=== PATIENT | female | born 1995 | race Caucasian/White ===

== ENCOUNTER 2020-01-05 17:47 | Emergency (ER) | payer OTHER, SELFPAY ==
[2020-01-05 17:55] VITALS: BP 147/81; PULSE 108; RESP 16; TEMP 37.6; O2SAT 100
--- NOTE | 2020-01-05 18:23 | ED.NAVMDI ---
HPI - Nausea/Vomiting/Diarrhea General Chief complaint: Nausea/Vomiting/Diarrhea Stated complaint: n/v 22 weeks preg Time Seen by Provider: 01/05/20 18:20 Source: patient and RN notes reviewed Mode of arrival: ambulatory Limitations: no limitations History of Present Illness HPI Narrative: A 24 y/o female, who is 22 week gravid, presents to the ED with N/V for the past day. She reports that she has been having associated sweats, a subjective fever, and a PEGUERO. She states that eating or drinking aggravates her symptoms. She denies any diarrhea, chills, dysuria, hematuria, urinary frequency, cough, body aches, ABD pain, vaginal discharge, or vaginal bleeding. MD elicited complaint: nausea and vomiting Onset (ago): day(s) (1) Associated nausea: Yes Associated abdominal pain: No Exacerbating factors: eating (and drinking) Associated symptoms: diaphoresis, fever/chills (subjective fever) and headaches Related Data Home Medications Medication Instructions Recorded Confirmed Complete 1 tablet PO DAILY 10/08/19 11/17/19 venlafaxine 150 mg PO DAILY 10/08/19 11/17/19 lamotrigine [Lamictal] 100 mg PO DAILY 01/05/20 Allergies Allergy/AdvReac Type Severity Reaction Status Date / Time No Known Allergies Allergy Unknown Verified 01/05/20 18:05 Review of Systems Review of Systems: All systems reviewed & are unremarkable except as noted in HPI and below Constitutional: Constitutional: Denies body ache(s), Denies chills, Reports fever(s) (subjective) and Reports other (sweats) Respiratory: Respiratory: Denies cough Gastrointestinal: Gastrointestinal: Denies abdominal pain, Denies diarrhea, Reports nausea and Reports vomiting Genitourinary: Genitourinary: Denies abnormal vaginal bleeding, Denies hematuria, Denies nocturia, Denies dysuria and Denies vaginal discharge Neurologic: Reports headache(s) PMFSH Past Medical History Medical History (Updated 01/05/20 @ 20:55 by Aidee Mitchell MD) Anxiety Depression Hx of bipolar disorder Urinary tract infection Surgical History Surgical History No significant past surgical history Family History Family History Grandparent Diabetes mellitus Hypertension Carcinoma of colon Social History Social History Smoking packs per day: 1 Smoking cigarettes per day: 20.0 Years smoked: 4 Smoking pack-years: 4.00 Smoking status: Current every day smoker Tobacco type: cigarettes Alcohol intake: former Substance use: never Substance use type: does not use Gender identity (if verbalized by the patient): Female Spiritual care concerns: No Agree to blood products: Yes Exam Const: General: cooperative, no acute distress and alert Nutritional Appearance: well nourished Orientation/consciousness: patient oriented x3 Limitations: no limitations HENMT: Mouth: Yes lip normal and Yes moist mucous membranes Resp: Effort & Inspection: normal respiratory effort Auscultation: clear to auscultation bilaterally Cardio: Rate: regular rate Rhythm: regular rhythm GI: Inspection: other (uterus gravid constant with dates) GI Palp: Yes Soft to palpation and No Tenderness to palpation present (GI) Auscultation: normal bowel sounds Skin: General skin exam: normal color Neuro: General: patient oriented x3 Cognition (Neuro): normal cognition Speech: normal speech Extrem: General: normal to inspection, full ROM and no clubbing, cyanosis or edema Psych: Mental Status: mental status grossly normal Affect: normal affect Attitude: cooperative Course Course Emergency Course: Patient feeling better after Reglan and IV fluids. Patient has mild pyuria without any findings to suggest UTI at this time. Urine culture is pending. Advised patient to follow-up results of urine culture with [employer]. Patient tolerating clear liquids in
[2020-01-05 18:47] LABS: Basophils Absolute Auto 0.1 K/mm3 (0.0-0.1); Basophils Percent Auto 0.5 % (0.2-1.2); Eosinophils Percent Auto 0.3 % (0-4.4); Hematocrit 39.7 % (37.0-47.0); Hemoglobin 13.4 g/dL (12.0-15.0); Immature Granulocyte Absolute 0.07 K/mm3 (0.00-0.031); Immature Granulocyte Percent A 0.5 % (0-0.5); Lymphocytes Absolute Auto 1.88 K/mm3 (0.9-3.2); Lymphocytes Percent Auto 13.4 % (18.3-44.2); Mean Corpuscular HGB Conc 33.8 g/dl (32-36); Mean Corpuscular Hemoglobin 31.7 pg (26-34); Mean Corpuscular Volume 93.9 fl (80-100); Monocytes Percent Auto 7.1 % (2.6-8.5); Neutrophils Percent Auto 78.2 % (45.5-73.1); Platelet Count Result 322 k/mm3 (150-375); Red Blood Count 4.23 M/mm3 (4.2-5.4); Red Cell Distribution Width 11.9 % (11.5-14.5)
[2020-01-05 18:53] VITALS: BP 130/81; BP 133/84; BP 138/81; PULSE 84; PULSE 93; PULSE 98
[2020-01-05 19:03] LABS: Alanine Aminotransferase 31 U/L (4-35); Albumin Level 4.6 g/dL (3.5-5.1); Alkaline Phosphatase 87 U/L (38-126); Aspartate Amino Transferase 30 U/L (14-36); Bilirubin,Total 0.3 mg/dL (0.2-1.3); Blood Urea Nitrogen 9 mg/dL (7-17); Calcium 9.7 mg/dL (8.4-10.2); Carbon Dioxide 20 mmol/L (22-30); Chloride 106 mmol/L (98-107); Estimated CRCL calculation 186 ml/min; Estimated Glomerular Filt Rate > 60; Glucose 86 mg/dL (65-105); Lipase 22 U/L (23-300); Potassium 3.6 mmol/L (3.4-5.0); Sodium 137 mmol/L (137-145)
[2020-01-05] MEDS: METOCLOPRAMIDE HCL INJ 10 MG/2 ML VIAL IV PUSH (19:24)
[2020-01-05] MEDS: LACTATED RINGERS 1,000 ML 999 ML IV CONT (19:24)
[2020-01-05 20:40] LABS: Add Urine Microscopic? YES; Appearance Urine Cloudy (Clear); Bacteria Urine 2+ /hpf; Bilirubin Urine Negative (Negative); Color Urine Yellow (Yellow); Glucose Urine UA Negative (Negative); Ketones Urine 2+ mg/dL (Negative); Leukocyte Esterase Ur 2+ LEU/UL (Negative); Mucus Urine Few /lpf; Nitrate Urine Negative (Negative); Protein Urine 1+ mg/dL (Negative); Specific Grav Ur 1.026 (1.001-1.035); Squamous Epithelial Cell Urine Many /hpf (Few); Urobilinogen Urine Negative mg/dL (<2.0)
[2020-01-05 20:42] LABS: Blood Urine Negative (Negative)
[2020-01-05 21:30] VITALS: BP 142/74; PULSE 80; RESP 16; O2SAT 98
== END 2020-01-05 21:31 | disposition home or self-care (01) ==
PROVIDERS: Emergency Provider Emergency Medicine; PCP Family Medicine
DX: O21.9 Vomiting of pregnancy, unspecified (principal); O99.282 Endocrine, nutritional and metabolic diseases complicating pregnancy, second trimester; E86.0 Dehydration; O99.342 Other mental disorders complicating pregnancy, second trimester; F41.9 Anxiety disorder, unspecified; F31.9 Bipolar disorder, unspecified; O99.332 Smoking (tobacco) complicating pregnancy, second trimester; F17.210 Nicotine dependence, cigarettes, uncomplicated; Z3A.22 22 weeks gestation of pregnancy
CPT/HCPCS: 36415; 80053; 81001; 83690; 85025; 87086; 87088; 87804; 96374; 99284; J2765; J7120

== ENCOUNTER 2020-04-22 17:05 | Outpatient (CLI) | payer OTHER, SELFPAY ==
[2020-04-22] VITALS (7 sets, daily range): BP systolic 143–148; BP diastolic 82–101; PULSE 87–106; TEMP 36.6; BMI 29.8
[2020-04-22 18:12] LABS: Basophils Absolute Auto 0.1 K/mm3 (0.0-0.1); Basophils Percent Auto 0.5 % (0.2-1.2); Eosinophils Absolute Auto 0.1 K/mm3 (0-0.3); Hematocrit 38.4 % (37.0-47.0); Immature Granulocyte Absolute 0.13 K/mm3 (0.00-0.031); Immature Granulocyte Percent A 0.9 % (0-0.5); Lymphocytes Absolute Auto 2.76 K/mm3 (0.9-3.2); Lymphocytes Percent Auto 19.2 % (18.3-44.2); Mean Corpuscular HGB Conc 33.9 g/dl (32-36); Mean Corpuscular Hemoglobin 31.3 pg (26-34); Mean Corpuscular Volume 92.5 fl (80-100); Mean Platelet Volume 10.5 fl (7.4-10.4); Monocytes Absolute Auto 1.4 K/mm3 (0.1-0.6); Monocytes Percent Auto 9.9 % (2.6-8.5); Neutrophils Absolute Auto 9.8 K/mm3 (1.3-6.7); Neutrophils Percent Auto 68.5 % (45.5-73.1); Platelet Count Result 283 k/mm3 (150-375); Red Blood Count 4.15 M/mm3 (4.2-5.4); Red Cell Distribution Width 12.9 % (11.5-14.5); White Blood Count 14.3 K/mm3 (4.5-10.0)
[2020-04-22 18:17] LABS: Add Urine Microscopic? YES; Amorphous Sediment Urine Few; Appearance Urine Cloudy (Clear); Bacteria Urine 4+ /hpf; Bilirubin Urine Negative (Negative); Color Urine Yellow (Yellow); Glucose Urine UA Negative (Negative); Ketones Urine Negative (Negative); Leukocyte Esterase Ur 1+ LEU/UL (Negative); Mucus Urine Heavy /lpf; Nitrate Urine Negative (Negative); Protein Urine 2+ mg/dL (Negative); Specific Grav Ur 1.029 (1.001-1.035); Squamous Epithelial Cell Urine Many /hpf (Few); Urobilinogen Urine Negative mg/dL (<2.0); WBC Urine 16-20 /hpf
[2020-04-22 18:21] LABS: Blood Urine Negative (Negative)
[2020-04-22 18:23] LABS: Alanine Aminotransferase 14 U/L (4-35); Albumin Level 3.6 g/dL (3.5-5.1); Alkaline Phosphatase 171 U/L (38-126); Aspartate Amino Transferase 20 U/L (14-36); Bilirubin,Total 0.2 mg/dL (0.2-1.3); Blood Urea Nitrogen 10 mg/dL (7-17); Carbon Dioxide 22 mmol/L (22-30); Chloride 106 mmol/L (98-107); Estimated Glomerular Filt Rate > 60; Glucose 82 mg/dL (65-105); Potassium 4.1 mmol/L (3.4-5.0); Sodium 134 mmol/L (137-145); Uric Acid 5.8 mg/dL (2.5-7.5)
[2020-04-22 19:04] LABS: Creatinine Urine 241.3 mg/dL; Total Protein Urine Random 14 mg/dL
--- NOTE | 2020-04-22 20:16 | PC.NURSE ---
Discussed with pt to return to OB 04/23 at 0530 for . Instructed nothing to eat or drink after midnight. Estelle Montero CNM instructed pt we will give her meds after the as she does not normally take them until closer to noon. Discussed labs and will repeat labs in the morning and instructed to return to the hospital sooner if she begins having symptoms of HIP which were explained and discussed or labor/SROM. Verbalized understanding.
== END 2020-04-22 19:30 | disposition home or self-care (01) ==
LOC: ANHOBOP 17:43 → ANHOBPP 17:46
PROVIDERS: Advanced Practice Midwife; Family Provider Obstetrics & Gynecology; PCP Family Medicine; Visit Provider Obstetrics & Gynecology
DX: O13.9 Gestational [pregnancy-induced] hypertension without significant proteinuria, unspecified trimester (principal); Z3A.00 Weeks of gestation of pregnancy not specified
CPT/HCPCS: 36415; 59025; 80053; 81001; 82570; 84156; 84550; 85025; 87086; 87088; 99199

== ENCOUNTER 2020-04-23 05:41 | Inpatient (IN) | payer OTHER, SELFPAY ==
[2020-04-23] VITALS (65 sets, daily range): BP systolic 104–163; BP diastolic 82–127; PULSE 25–110; RESP 14–20; TEMP 36–37.5; O2SAT 81–100; BMI 29.8
--- NOTE | 2020-04-23 06:26 | WPDANESEPP ---
Anes - Eval Pre Procedure Procedure: Operation Date: 04/23/20 07:30 Proposed Procedures p Section - Solomon Mcdowell MD Date/Time: 04/23/20 06:26 Surgeon: July Preop Diagnosis: Breech Presentation Pre Op Diagnosis: section Patient Data Age: 24 Gender: F Height: Weight: Allergies Allergy/AdvReac Type Severity Reaction Status Date / Time No Known Allergies Allergy Unknown Verified 04/13/20 12:47 Home Medications Medication Instructions Recorded Confirmed Type Complete 1 tablet PO DAILY 10/08/19 04/22/20 History venlafaxine 150 mg PO DAILY 10/08/19 04/22/20 History lamotrigine [Lamictal] 200 mg PO DAILY 01/05/20 04/22/20 History hydroxyzine HCl 50 mg PO HS 04/22/20 04/22/20 History Patient hx anesthesia problems: none Family hx anesthesia problems: none PMFSH Past Medical History Medical History Anxiety Depression Hx of bipolar disorder Urinary tract infection Surgical History Surgical History No significant past surgical history Family History Family History Grandparent Diabetes mellitus Carcinoma of colon Hypertension Heart disease Social History Social History Smoking packs per day: 1 Smoking cigarettes per day: 20.0 Years smoked: 4 Smoking pack-years: 4.00 Smoking status: Current every day smoker Tobacco type: cigarettes Alcohol intake: former Substance use: never Substance use type: does not use Gender identity (if verbalized by the patient): Female Spiritual care concerns: No Agree to blood products: Yes Exam Day of Procedure 04/23/20 06:26 Patient weight: overweight Heart: regular rate and rhythm Lungs: clear to auscultation and normal air movement Airway: Mallampati scale class II Neurological: alert and oriented
[2020-04-23 06:38] LABS: Basophils Absolute Auto 0.1 K/mm3 (0.0-0.1); Basophils Percent Auto 0.4 % (0.2-1.2); Eosinophils Absolute Auto 0.1 K/mm3 (0-0.3); Hematocrit 36.9 % (37.0-47.0); Hemoglobin 12.5 g/dL (12.0-15.0); Immature Granulocyte Absolute 0.09 K/mm3 (0.00-0.031); Immature Granulocyte Percent A 0.6 % (0-0.5); Lymphocytes Percent Auto 20.9 % (18.3-44.2); Mean Corpuscular HGB Conc 33.9 g/dl (32-36); Mean Corpuscular Hemoglobin 30.9 pg (26-34); Mean Corpuscular Volume 91.3 fl (80-100); Monocytes Absolute Auto 1.3 K/mm3 (0.1-0.6); Monocytes Percent Auto 8.9 % (2.6-8.5); Neutrophils Absolute Auto 9.8 K/mm3 (1.3-6.7); Neutrophils Percent Auto 68.2 % (45.5-73.1); Platelet Count Result 279 k/mm3 (150-375); Red Blood Count 4.04 M/mm3 (4.2-5.4); Red Cell Distribution Width 12.6 % (11.5-14.5); White Blood Count 14.3 K/mm3 (4.5-10.0)
[2020-04-23] MEDS: LACTATED RINGERS 1,000 ML 999 ML IV CONT (06:38)
--- NOTE | 2020-04-23 06:43 | LDADM ---
This patient, Diana Marie, was admitted to Labor/Delivery/Recovery 120 on 04/23/20 at 05:41. Plans for labor, pain management and were discussed with patient. Patient/family oriented to hospital policies and general routines including ID bracelet, bed and alarms, visiting hours, pain management, procedures, bathroom and other care routines, personal items, smoking policy, room service/diet and guest tray routines, security routines, and visiting hours. Patient/Family are encouraged to report perceived risks to care and to ask questions if they do not understand what they are told or what they should do. See OBIX for further documentation.
[2020-04-23 06:51] LABS: Alanine Aminotransferase 14 U/L (4-35); Albumin Level 3.5 g/dL (3.5-5.1); Alkaline Phosphatase 166 U/L (38-126); Aspartate Amino Transferase 21 U/L (14-36); Bilirubin,Total < 0.1 mg/dL (0.2-1.3); Blood Urea Nitrogen 10 mg/dL (7-17); Calcium 8.8 mg/dL (8.4-10.2); Carbon Dioxide 21 mmol/L (22-30); Chloride 106 mmol/L (98-107); Estimated CRCL calculation 172 ml/min; Estimated Glomerular Filt Rate > 60; Glucose 81 mg/dL (65-105); Potassium 3.9 mmol/L (3.4-5.0); Sodium 134 mmol/L (137-145)
[2020-04-23] MEDS: LACTATED RINGERS 1,000 ML 125 ML IV CONT (07:05)
[2020-04-23] MEDS: ceFAZolin 2 GM/D5W 50 ML 2 GM/50 ML BAG IVPB (07:06)
--- NOTE | 2020-04-23 07:18 | PC.NURSE ---
Dr. Mcdowell at bedside. Ultrasound performed and confirmed breech presentation.
--- NOTE | 2020-04-23 07:26 | PM.IMHP ---
H&P: HPI History of Present Illness Chief complaint: section Narrative: Diana Marie is a 24 year old female 1 at 37 weeks gestation who presents with gestational hypertension and and a fetus in the breech presentation. We discussed external cephalic version. The patient declined version. We have agreed to perform delivery. She is being delivered for gestational hypertension and possible mild preeclampsia. We agreed to proceed with delivery. She understands that there is significant risk to a delivery. She denies any contractions. She denies any loss of fluid or vaginal bleeding. She denies any nausea, vomiting, fever, chills. She denies any chest pain or shortness of breath. Review of Systems Constitutional: Constitutional: Reports no additional constitutional complaints, Denies fatigue, Denies headache(s), Denies lethargy and Denies weakness Eyes: Eyes: Reports no additional eye complaints, Denies blurry vision and Denies photophobia ENT: Reports as per HPI, Denies headache(s) and Denies neck pain Cardiovascular: Cardiovascular: Denies chest pain, Denies diaphoresis, Denies leg edema, Denies palpitations and Denies dyspnea Respiratory: Respiratory: Denies hemoptysis, Denies dyspnea and Denies wheezing Gastrointestinal: Gastrointestinal: Denies abdominal pain, Denies melena, Denies bloating, Denies hematochezia, Denies nausea and Denies vomiting Genitourinary: Genitourinary: Reports no additional female genitourinary complaints Musculoskeletal: Musculoskeletal: Denies joint swelling, Denies neck pain, Denies numbness and Denies stiffness Neurologic: Denies Abnormal speech present, Denies confusion, Denies headache(s), Denies numbness and Denies weakness Psychiatric: Psychiatric: Denies anxiety, Denies confusion, Denies depression, Denies homicidal ideation and Denies suicidal ideation Endocrine: Endocrine: Denies fatigue and Denies palpitations Allergic/Immunologic: Allergic/Immunologic: Denies wheezing PMFSH Past Medical History Medical History Anxiety Depression Hx of bipolar disorder Urinary tract infection Surgical History Surgical History No significant past surgical history Family History Family History Grandparent Diabetes mellitus Carcinoma of colon Hypertension Heart disease Social History Social History Smoking packs per day: 1 Smoking cigarettes per day: 20.0 Years smoked: 4 Smoking pack-years: 4.00 Smoking status: Current some day smoker Tobacco type: cigarettes Additional smoking assessment comments: pt states she only smokes every other day Alcohol intake: former Substance use: never Substance use type: does not use Gender identity (if verbalized by the patient): Female Spiritual care concerns: No Agree to blood products: Yes Meds Home Medications and Allergies Home Medications Medication Instructions Recorded Confirmed Type Complete 1 tablet PO DAILY 10/08/19 04/22/20 History venlafaxine 150 mg PO DAILY 10/08/19 04/22/20 History lamotrigine [Lamictal] 200 mg PO DAILY 01/05/20 04/22/20 History hydroxyzine HCl 50 mg PO HS 04/22/20 04/22/20 History Allergies Allergy/AdvReac Type Severity Reaction Status Date / Time No Known Allergies Allergy Unknown Verified 04/13/20 12:47 Vital Signs Vital Signs - 24 hr 04/23/20 06:40 Pulse Rate 94 Blood Pressure 137/88 Exam Const: General: healthy appearing, comfortable and no acute distress; No confusion Orientation/consciousness: No confusion Eyes: Direct Ophthalmoscopy: No photophobia Resp: Auscultation: clear to auscultation bilaterally, no rales, no rhonchi and no wheezes Cardio: Rate: regular rate Heart sounds:
[2020-04-23] MEDS: KETOROLAC 30 MG/ML VIAL (*BKC) 15 MG IM (08:15)
--- NOTE | 2020-04-23 08:22 | PM.PROC ---
Procedure Note - Detailed Date of procedure: 04/23/20 Pre-op diagnosis: section Term gestation, preeclampsia, breech Post-op diagnosis: same Procedure performed: low-transverse delivery Description of procedure: The patient was taken the operating room. She was prepped and draped in the dorsal supine position with leftward tilt after induction of spinal anesthetic. When anesthesia was found to be adequate a low-transverse skin incision was made and carried down to the level the fascia with the knife. The fascial incision was made at the midline with a scalpel. The fascial incision was extended laterally with Gracia scissors. The fascia was tented upward superior and inferior with Lia clamps. The rectus muscles were dissected off bluntly. The rectus muscles at the midline. The preperitoneal fat was dissected bluntly at the superior aspect of the separate the rectus muscles. The peritoneal cavity was entered bluntly in the same area. The peritoneal incision was extended superior and inferior with good visualization of bladder. Bladder blade was inserted. A low-transverse incision was made on the uterus with the scalpel. It was carried down the level of the amniotic cavity with a knife. The amniotic cavity bluntly. The uterine incision was made laterally with blunt traction. The was delivered. The cord was clamped and cut. The infant was handed off to waiting pediatric staff. Cord bloods were obtained. The placenta was removed manually. The uterus was exteriorized. Uterus cleared of all clots and debris. Uterus closed in 0 Vicryl in a running locked fashion. An imbricating layer of 0 Vicryl was also placed on the to bolster the closure. The uterus was returned to the abdomen. The gutters were cleared of all clots and debris. The fascia was closed 0 Vicryl in a running fashion. Subcutaneous tissue was irrigated and bleeding areas were cauterized. The skin was closed with subcuticular absorbable danielle. The incision was covered with derma noel. The patient tolerated the procedure well. She was taken recovery room stable condition. Sponge, lap, needle counts were correct x2. Anesthesia: spinal Surgeon: Solomon Mcdowell MD Estimated blood loss (mL): 240 Drains: No Packing: No Pathology: none sent Complications: No immediate complications Condition: stable Disposition: floor Findings: Normal maternal anatomy. Smaller than average size infant with normal Apgars. Breech presentation
--- NOTE | 2020-04-23 11:17 | PC.NURSE ---
PT arrived on unit via stretcher accompanied by significant other and and taken to room 283. PT oriented to room 283 and surrounding area. Pt introductions made and plan of care discussed per post op c section, pain management, breast feeding, daily care activities. Welcome packet reviewed and discussed. PT verbalized understanding of such care.
[2020-04-23] MEDS: SIMETHICONE 80 MG TAB.CHEW PO ×2 (12:12→16:50)
[2020-04-23] MEDS: KETOROLAC 30 MG/ML VIAL (*BKC) IV PUSH (12:13)
[2020-04-23] MEDS: LANOLIN (LANSINOH) 7.5 GM CREAM 1 APPLIC TOPICAL (12:14)
--- NOTE | 2020-04-23 12:40 | PC.NURSE ---
Mother called out for assist with feeding, reporting is sleepy, mother reported eagerly fed for first feeding. Reviewed feeding cues, frequencies, duration of feedings, feeding elimination flow sheet, and signs of adequate intake. Demonstrated stimulation techniques to wake for feeding. Assisted with infant to breast. Reviewed positioning/alignment in cross cradle, holding breast in U hold and guided asymmetrical latch on. Discussed rational for each. Infant was making eager attempts. Infant would open to latch and suckle a few times pausing and fall asleep. Attempt for 10+ minutes. Suggested skin to skin and attempt again in 30 min.
--- NOTE | 2020-04-23 13:20 | PC.NURSE ---
Attempt infant to breast. Reviewed feeding cues, frequencies, duration of feedings, feeding elimination flow sheet, and signs of adequate intake. Demonstrated stimulation techniques to wake for feeding. Assisted with to breast. Reviewed positioning/alignment in cross cradle, holding breast in U hold and guided asymmetrical latch on. Discussed rational for each. was making eager attempts. Infant would open to latch and suckle a few times pausing and fall asleep. Attempt for 10+ minutes. S
--- NOTE | 2020-04-23 13:45 | PC.NURSE ---
Infant feeding status reported to primary RN. Decision to supplement at this time.
[2020-04-23] MEDS: DEXTROSE 5%/0.45% SOD CHL 1,000 ML 125 ML IV CONT (15:30)
[2020-04-23] MEDS: VENLAFAXINE HCL XR 75 MG CAP.ER.24H 150 MG PO (16:48)
[2020-04-23] MEDS: DOCUSATE SODIUM 100 MG CAPSULE PO (16:49)
[2020-04-23] MEDS: lamoTRIgine 100 MG TABLET 200 MG PO (16:50)
[2020-04-23] MEDS: IBUPROFEN 600 MG TABLET PO (20:10)
[2020-04-23] MEDS: hydrOXYzine HCL 25 MG TABLET 50 MG PO (21:22)
[2020-04-24] VITALS: BP 145/100; PULSE 80; RESP 16; TEMP 36.3; O2SAT 99
[2020-04-24] MEDS: IBUPROFEN 600 MG TABLET PO ×3 (05:27→17:56)
[2020-04-24 05:30] VITALS: BP 144/94; PULSE 82; RESP 16; TEMP 36.6; O2SAT 100
[2020-04-24 06:01] LABS: Basophils Percent Auto 0.3 % (0.2-1.2); Eosinophils Absolute Auto 0.1 K/mm3 (0-0.3); Eosinophils Percent Auto 1.1 % (0-4.4); Hematocrit 32.4 % (37.0-47.0); Hemoglobin 10.8 g/dL (12.0-15.0); Immature Granulocyte Absolute 0.07 K/mm3 (0.00-0.031); Immature Granulocyte Percent A 0.5 % (0-0.5); Lymphocytes Absolute Auto 2.49 K/mm3 (0.9-3.2); Lymphocytes Percent Auto 19.5 % (18.3-44.2); Mean Corpuscular HGB Conc 33.3 g/dl (32-36); Mean Corpuscular Hemoglobin 31.1 pg (26-34); Mean Corpuscular Volume 93.4 fl (80-100); Mean Platelet Volume 9.9 fl (7.4-10.4); Monocytes Absolute Auto 1.5 K/mm3 (0.1-0.6); Monocytes Percent Auto 11.4 % (2.6-8.5); Neutrophils Absolute Auto 8.6 K/mm3 (1.3-6.7); Neutrophils Percent Auto 67.2 % (45.5-73.1); Platelet Count Result 238 k/mm3 (150-375); Red Blood Count 3.47 M/mm3 (4.2-5.4); Red Cell Distribution Width 12.8 % (11.5-14.5); White Blood Count 12.7 K/mm3 (4.5-10.0)
[2020-04-24 08:00] VITALS: BP 128/78; PULSE 90; RESP 16; TEMP 36.8; O2SAT 99
--- NOTE | 2020-04-24 08:06 | PM.OBPNVD ---
OB - PN: Subj Subjective Date/time seen: 04/24/20 08:06 Patient comments: no complaints, pain well controlled, tolerating diet and flatus present OB - PN: Obj Data Labs CBC & Chem 7: 04/24/20 05:38 04/23/20 06:24 Labs: Laboratory Results - last 24 hr 04/23/20 04/24/20 06:25 05:38 WBC 12.7 H RBC 3.47 L Hgb 10.8 L Hct 32.4 L MCV 93.4 MCH 31.1 MCHC 33.3 RDW 12.8 Plt Count 238 MPV 9.9 Immature Gran % (Auto) 0.5 Neut % (Auto) 67.2 Lymph % (Auto) 19.5 Granite % (Auto) 11.4 H Eos % (Auto) 1.1 Baso % (Auto) 0.3 Lymph # (Auto) 2.49 Granite # (Auto) 1.5 H Eos # (Auto) 0.1 Baso # (Auto) 0.0 Abs Immat Gran (auto) 0.07 H Absolute Neuts (auto) 8.6 H Absolute Nucleated RBC 0.0 Nucleated RBC % 0.0 Blood Type A Positive Antibody Screen Negative OB - PN A/P Plan day: 1 Comments: Post Op LTCS - no problems, routine recovery Time Spent With Patient Time: Total time spent is greater than 50% in coordination of care (as documented) at patient's floor/unit and/or counseling patient: Exam Const: General: cooperative, healthy appearing, comfortable and no acute distress Resp: Auscultation: no crackles, no rales, no rhonchi and no wheezes Cardio: Rhythm: regular rhythm Heart sounds: no click and no murmurs GI: Inspection: non-distended Auscultation: normal bowel sounds Extrem: General: normal to inspection, no pedal edema and no calf tenderness
--- NOTE | 2020-04-24 08:43 | WPDANLDPN2 ---
Anes-Prog Note L&D Date/Time: 04/24/20 08:43 Comfortable throughout: section Neuraxial method: spinal Epidural/Spinal procedure site: clean & non-tender Neuro status: Neuro function grossly intact. Cardiovascular status: normal Respiratory status: normal Airway patency: baseline Mental status: baseline Post-Op hydration status: normal Vital Signs: Last Vital Signs Temp 97.8 F 04/24/20 05:30 Pulse 82 04/24/20 05:30 Resp 16 04/24/20 05:30 BP 144/94 H 04/24/20 05:30 Pulse Ox 100 04/24/20 05:30 I/O: Intake & Output 04/23/20 04/24/20 04/24/20 23:59 07:59 15:59 Intake Total 1240 Output Total 750 1950 Balance 490 -1950 Post-procedural complaints: none Patient feedback: Patient satisfied with anesthetic care.
--- NOTE | 2020-04-24 08:44 | WPDANLDNPN2 ---
Anes-Prog Note L&D-Neuraxial Date/Time: 04/24/20 08:44 Neuraxial medications: intrathecal PF morphine Opiod-related complaints: none Patient feedback: Patient satisfied with post-operative pain management.
[2020-04-24] MEDS: DOCUSATE SODIUM 100 MG CAPSULE PO ×2 (08:52→16:14)
[2020-04-24] MEDS: MULTIVIT/MIN/PREN/FOL AC/IRON TABLET 1 TAB PO (08:52)
[2020-04-24] MEDS: lamoTRIgine 100 MG TABLET 200 MG PO (08:53)
[2020-04-24] MEDS: VENLAFAXINE HCL XR 75 MG CAP.ER.24H 150 MG PO (08:53)
--- NOTE | 2020-04-24 09:45 | PC.NURSE ---
Consult with pt., mother reports she had difficulties waking and latching infant during the night. Mother has been bottle feeding most feedings. Discussed milk supply and offered to assist mother to initiate pumping. Mother states she is tired and unsure if she will continue to put to breast. Suggested mother rest and notify RN if her decision next feeding.
[2020-04-24 10:46] LABS: Rapid Plasma Reagin Non-Reactive (NonReactive)
[2020-04-24] MEDS: TETANUS,DIPHTHERIA,AC PERTUSSIS ADULT (0.5 ML) BOOSTRIX IM (16:15)
[2020-04-24 19:58] VITALS: BP 141/92; PULSE 91; RESP 16; TEMP 36.6; O2SAT 99
[2020-04-25] MEDS: IBUPROFEN 600 MG TABLET PO ×3 (00:55→14:15)
[2020-04-25] MEDS: MULTIVIT/MIN/PREN/FOL AC/IRON TABLET 1 TAB PO (07:39)
[2020-04-25] MEDS: SIMETHICONE 80 MG TAB.CHEW PO ×2 (07:39→14:15)
[2020-04-25] MEDS: DOCUSATE SODIUM 100 MG CAPSULE PO (07:39)
[2020-04-25] MEDS: lamoTRIgine 100 MG TABLET 200 MG PO (07:41)
[2020-04-25] MEDS: VENLAFAXINE HCL XR 75 MG CAP.ER.24H 150 MG PO (07:41)
[2020-04-25 08:00] VITALS: BP 150/94; PULSE 72; RESP 20; TEMP 36.9
--- NOTE | 2020-04-25 10:31 | PM.OBPNVD ---
OB - PN: Subj Subjective Date/time seen: 04/25/20 10:31 OB - PN: Obj Data Labs CBC & Chem 7: 04/24/20 05:38 04/23/20 06:24 Labs: Laboratory Results - last 24 hr 04/23/20 06:24 RPR Non-reactive OB - PN A/P Plan day: 2 Plan: routine care and discharge home (Hospital visit Monday. Office visit end of week.) Comments: Discussed recommended stay. Pt desires discharge today. PIH precautions discussed in detail. Time Spent With Patient Time: Total time spent is greater than 50% in coordination of care (as documented) at patient's floor/unit and/or counseling patient: Review of Systems Review of Systems: All systems reviewed & are unremarkable except as noted in HPI and below Exam Narrative: Exam Narrative: Fundus firm and vaginal flow controlled. Minimal edema. Homans negative. No redness, warmth, or tenderness of lower ext. DTR normal. Const: General: comfortable Chest: Breast/axilla inspection: normal inspection of the breasts Resp: Effort & Inspection: normal respiratory effort Cardio: Rate: regular rate GI: Auscultation: normal bowel sounds Psych: Appearance: grossly normal Affect: normal affect Attitude: cooperative Judgement: Good judgement present (Psych)
--- NOTE | 2020-04-25 11:00 | PC.NURSE ---
Patient viewed the discharge video Mother & Baby Care, The First Two Weeks . Patient was given the opportunity and encouraged to ask questions. Patient verbalized understanding of information shared and has been given the mother/baby guide for home reference.
[2020-04-25 13:23] VITALS: BP 136/86; PULSE 82; RESP 18; TEMP 36.6
--- NOTE | 2020-04-25 13:25 | PC.NURSE ---
Self care and infant care discharge instructions given including follow up visit date and time. Mother verbalized understanding. No questions or concerns voiced. Very pleasant and cooperative.
[2020-04-27 09:39] VITALS: BP 140/89; PULSE 98; RESP 20; TEMP 36.9
--- NOTE | 2020-05-17 19:47 | PM.OBDSVD ---
DS: Admitting Diagnosis Admitting Diagnosis Admitting Diagnosis: Encounter for supervision of normal , unspecified, third trimester DS: Discharge Diagnosis Discharge Diagnosis (1) Breech presentation: Code(s): O32.1XX0 - Maternal care for breech presentation, not applicable or unspecified Status: Acute (2) Gestational hypertension: Code(s): O13.9 - Gestational [-induced] hypertension without significant proteinuria, unspecified trimester Status: Acute (3) Preeclampsia: Code(s): O14.90 - Unspecified pre-eclampsia, unspecified trimester Status: Acute OB - DS: Summary OB Procedures : None OB Procedures Intrapartum: OB Procedures: : None Peripartum Data Delivery Method: Section Procedures: Procedures Operation Date: 04/23/20 07:30 Actual Procedures Side Surgeon p Section Solomon Mcdowell MD Status at Discharge Functional status at discharge: independent ambulation Time Spent with Patient Time attestation: Total time spent providing and/or coordinating discharge services: DS: Data Data Completed and Pending Completed studies during hospitalization: Pending at discharge 04/23/20 08:01 Surgical [PTH] Routine Discharge Plan Discharge Consulting providers: Yeni Clarke Discharging Clinician: Yeni Clarke Patient Disposition: Home, Self-Care Activity: may shower, may drive after 2 weeks and pelvic rest Diet: regular Discharge Instructions: Education: Mom and Baby Guide Given to: Mother Follow-Up: Call your delivering provider's office for an appointment to be seen in: 1 Week Mom and baby should come to the [facility] for the follow-up appointment. Appointment Date/Time: April 27, 2020 at 10:00 am What to expect at your follow-up visit: Blood Pressure Check Physical Assessment Call [phone] if you are unable to keep your appointment time. BREAST CARE: 1. Wear a snug supportive bra. 2. For engorgement discomfort: Breast Feeding: A. Apply warm moist washcloths B. Express milk as needed to relieve engorgement C. Wear loose clothing Bottle Feeding: A. May apply ice packs 3. For sore nipples: A. Identify correct latch-on B. Apply warm moist washcloths before and after nursing C. Air dry nipples after nursing D. May apply Lansinoh cream to nipples ABDOMINAL INCISION: (if applicable) 1. Allow incision to air dry 2. Do NOT use lotions for powders on your incision 3. When showering, allow soap and water to run over the incision, but do not wash incision EPISIOTOMY/PERINEAL CARE: 1. Until bleeding stops, use your tashia bottle after urinating 2. Change your pad frequently throughout the day 3. You may take sitz baths several times a day (fill your bathtub with warm water and soak for 20 minutes.) Do NOT bathe in the water 4. No tub baths until seen by your physician - You may shower ACTIVITY: 1. Rest as much as possible. 2. Do not exercise or lift anything heavier than your baby (such as laundry or other children.) 3. Avoid stairs or driving as much as possible. 4. Do not put anything into the vagina. No douching, tampons, or sexual activity until seen by physician. NOTIFY PHYSICIAN IF YOU HAVE ANY QUESTIONS OR IF ANY OF THE FOLLOWING SYMPTOMS OCCUR: 1. If your incision becomes red, swollen, or more painful than what you have experienced in the hospital. 2. If your vaginal bleeding becomes foul smelling. 3. If your vaginal bleeding becomes more heavy than a period or if your bleeding changes from pink to bright red. However, you may pass an occasional walnut-sized clot once or twice for the first week . 4. If you experience a sharp, shooting pain in you calves. 5. If you discover a hard, reddened area on your breast or if you experience flu-like sy
== END 2020-04-25 17:22 | disposition home or self-care (01) | DRG 540 ==
LOC: ANHLDR 05:49 → ANHOB2 11:20
PROVIDERS: Admitting Provider Obstetrics & Gynecology; PCP Family Medicine; Visit Provider Obstetrics & Gynecology
PROC: 10D00Z1 Extraction of Products of Conception, Low, Open Approach (ICD-10-PCS; CPT 59514; principal; 2020-04-23 07:30)
DX: O14.94 Unspecified pre-eclampsia, complicating childbirth (principal); Z37.0 Single live birth; Z3A.37 37 weeks gestation of pregnancy; O34.211 Maternal care for low transverse scar from previous cesarean delivery; O32.1XX0 Maternal care for breech presentation, not applicable or unspecified; O99.344 Other mental disorders complicating childbirth; F31.9 Bipolar disorder, unspecified
CPT/HCPCS: 36415; 80053; 84550; 85025; 86592; 86850; 86900; 86901; 87086; 88307; 90715; A9270; J0131; J0690; J1200; J1885; J2175; J2274; J2370; J2590; J7120

== ENCOUNTER 2022-03-01 18:05 | Emergency (ER) | payer OTHER, SELFPAY ==
[2022-03-01 18:15] VITALS: BP 123/75; PULSE 103; RESP 18; TEMP 37.1; O2SAT 99
--- NOTE | 2022-03-01 18:20 | ED.URI ---
HPI - URI/Sore Throat General Chief Complaint: Upper Respiratory Infection Stated Complaint: Sore Throat,Headache,Bilateral Ear Pain Time Seen by Provider: 03/01/22 18:20 Source: patient and RN notes reviewed Mode of arrival: ambulatory Limitations: no limitations History of Present Illness HPI Narrative: 26 y/o female presented for c/o sore throat, nausea, headache x3 days. Denies cough, sob, wheezing, vomiting, or fever. Taking dayquil and Tylenol for symptoms. Denies sick contacts. She is vaccinated for flu, not vaccinated for covid. MD elicited complaint: sore throat Related Data Home Medications Medication Instructions Recorded Confirmed alprazolam 0.5 mg PO TID 03/01/22 03/01/22 Allergies Allergy/AdvReac Type Severity Reaction Status Date / Time No Known Allergies Allergy Unknown Verified 03/01/22 18:26 Review of Systems Review of Systems: CONSTITUTIONAL: Denies malaise, chills, sweats, fever EYES: Denies visual changes, redness, or discharge ENT: Reports sore throat CARDIOVASCULAR: Denies chest pain, palpitations, edema RESPIRATORY: Denies dyspnea cough, post nasal drainage. GASTROINTESTINAL: Denies abdominal pain, nausea, vomiting, diarrhea SKIN: Denies rash or itching MUSCULOSKELETAL: Denies myalgia NEUROLOGIC: Denies headache PMFSH Past Medical History Medical History Anxiety Depression Hx of bipolar disorder Mood disorder Urinary tract infection Surgical History Surgical History No significant past surgical history Family History Family History Grandparent Diabetes mellitus Carcinoma of colon Hypertension Heart disease Social History Social History Smoking packs per day: 1 Smoking cigarettes per day: 20.0 Years smoked: 4 Smoking pack-years: 4.00 Smoking status: Current some day smoker Tobacco type: cigarettes Additional smoking assessment comments: pt states she only smokes every other day Alcohol intake: former Substance use: never Substance use type: does not use Gender identity (if verbalized by the patient): Female Spiritual care concerns: No Agree to blood products: Yes Exam Narrative: GENERAL: Ill-appearing, nontoxic HEAD: Normocephalic EYES: conjunctivae clear ENT: Mucous membranes moist. TM pearly vazquez with dull light reflex bilaterally; no tragal tenderness. Oropharynx erythematous with tonsillar swelling 2+ with exudate, no drooling, no hoarseness, no trismus, uvula midline. No tripod positioning, muffled voice, soft palate or pharyngeal wall bulging NECK: Supple. No lymphadenopathy CHEST: Clear to auscultation, breath sounds equal. No respiratory distress, speaks in full sentences. HEART: Regular rate and rhythm. No murmur heard. SKIN: Warm, dry, no rash. NEURO: Alert and oriented x3. PSYCH: Normal mood and affect Course Course Emergency Course: Patient is aware of diagnosis, understands and agrees to treatment plan. Anticipatory guidance given. Patient agrees to follow-up as directed and is aware of reasons to seek care at the emergency department. Portions of this record may have been created with voice recognition software Level of Care: Express Care Visit Vital Signs Vital signs: Vital Signs Temperature 98.8 F 03/01/22 18:15 Pulse Rate 103 H 03/01/22 18:15 Respiratory Rate 18 03/01/22 18:15 Blood Pressure 123/75 03/01/22 18:15 Pulse Oximetry 99 03/01/22 18:15 Temperature 98.8 F 03/01/22 18:15 Pulse Rate 103 H 03/01/22 18:15 Respiratory Rate 18 03/01/22 18:15 Blood Pressure 123/75 03/01/22 18:15 Pulse Oximetry 99 03/01/22 18:15 reviewed MDM - URI/Sore Throat MDM Narrative Medical decision making narrative: strep negative, however given her presentation and PE
== END 2022-03-01 18:44 | disposition home or self-care (01) ==
PROVIDERS: Emergency Provider Nurse Practitioner Family
DX: J06.9 Acute upper respiratory infection, unspecified (principal); J02.9 Acute pharyngitis, unspecified; F32.9 Major depressive disorder, single episode, unspecified; F41.9 Anxiety disorder, unspecified; F17.210 Nicotine dependence, cigarettes, uncomplicated
CPT/HCPCS: 87081; 87880; 99213; G0463

== ENCOUNTER 2023-10-16 10:21 | Emergency (ER) | payer OTHER, SELFPAY ==
[2023-10-16 10:33] VITALS: BP 115/89; PULSE 100; RESP 18; TEMP 36.5; O2SAT 100
--- NOTE | 2023-10-16 10:56 | ED.URI ---
HPI - URI/Sore Throat General Chief Complaint: Upper Respiratory Infection Stated Complaint: headache,bilateral ear pain,sorethroat Time Seen by Provider: 10/16/23 10:45 Source: patient and RN notes reviewed Mode of arrival: ambulatory Limitations: no limitations History of Present Illness HPI Narrative: Patient presents today complaining of a 10 day history of bilateral ear pain, sore throat, fatigue, postnasal drip. She has been using ibuprofen without relief and currently rates her pain 6/10. Denies fever. Reports sick contacts at work that have been diagnosed with COVID and flu. She has done multiple COVID test at home that have been negative. Related Data Home Medications Medication Instructions Recorded Confirmed alprazolam 0.5 mg tablet 0.5 mg PO TID 03/01/22 07/22/22 Allergies Allergy/AdvReac Type Severity Reaction Status Date / Time No Known Allergies Allergy Unknown Verified 03/01/22 18:26 Review of Systems Review of Systems: CONSTITUTIONAL: Denies body aches, fever, chills, or sweats.+ fatigue EYES: Denies visual changes, redness, or discharge. ENT: Denies rhinorrhea, congestion.+ sore throat, ear pain CARDIOVASCULAR: Denies chest pain, palpitations, or edema. RESPIRATORY: Denies cough or dyspnea. GASTROINTESTINAL: Denies abdominal pain, nausea, vomiting, or diarrhea. GENITOURINARY: Denies dysuria or hematuria. SKIN: Denies rash, itching, or wounds. MUSCULOSKELETAL: Denies back pain, joint pain, or myalgia. NEUROLOGIC: Denies headache, numbness, tingling, or weakness. PSYCH: Denies depression or anxiety. [facility] Past Medical History Medical History Anxiety Depression Hx of bipolar disorder Mood disorder Urinary tract infection Surgical History Surgical History No significant past surgical history Family History Family History Grandparent Diabetes mellitus Carcinoma of colon Hypertension Heart disease Social History Social History Smoking packs per day: 1 Smoking cigarettes per day: 20.0 Years smoked: 4 Smoking pack-years: 4.00 Smoking status: Current some day smoker Tobacco type: cigarettes Additional smoking assessment comments: pt states she only smokes every other day Alcohol intake: former Substance use: never Substance use type: does not use Gender identity (if verbalized by the patient): Female Spiritual care concerns: No Agree to blood products: Yes Comments At time of signature, I have reviewed and agree with nursing past medical, surgical, social and family history unless otherwise noted. Please see nursing chart for further information. There is no relevant family history pertinent to the presenting complaint Exam Narrative: GENERAL: Well-appearing, well-nourished, and in no acute distress. HEAD: Normocephalic, atraumatic. EYES: EOMI. No redness or drainage. Conjunctivae normal. ENT: Mucous membranes pink and moist. Nares clear. No rhinorrhea. Left TM normal. Right cerumen impaction.. Throat mildly erythematous without edema or exudate. Uvula midline. NECK: Normal AROM. Supple. No lymphadenopathy. CHEST: No respiratory distress. Clear to auscultation. HEART: Regular rate and rhythm. No murmur appreciated. EXTREMITIES: Normal range of motion. No edema. SKIN: Warm, dry, no rash. Capillary refill normal. Normal skin turgor. NEURO: No focal deficits. Alert and oriented x3. Gait steady. PSYCH: Normal affect. No signs of depression or anxiety. Course Course Level of Care: Express Care Visit Vital Signs Vital signs: Vital Signs Temperature 97.7 F 10/16/23 10:33 Pulse Rate 100 10/16/23 10:33 Respiratory Rate 18 10/16/23 10:33 Blood Pressure 115/89 10/16/23 10:33 Puls
== END 2023-10-16 11:26 | disposition home or self-care (01) ==
PROVIDERS: Emergency Provider Nurse Practitioner
DX: J02.9 Acute pharyngitis, unspecified (principal); F17.210 Nicotine dependence, cigarettes, uncomplicated
CPT/HCPCS: 87081; 87880; 99213; G0463

== ENCOUNTER 2025-07-11 18:38 | Emergency (ER) | payer OTHER, SELFPAY ==
--- OUTSIDE RECORDS SUMMARY | 2023-03-08 07:00 | XMS_ITS | Continuity of Care Document ---
Author Organization [facility] Address [address] [place] [phone] Phone Care Team Providers Care Gear Setter Name Role Phone Ryan SCOTT, Kristin Unavailable Unavailable Allergies, Adverse Reactions, Alerts Substance Reaction Status Criticality Penicillins Hives Active No Information Medications Medication Instructions Dosage Effective Dates (start - stop) Status Comments Zoloft 25 mg tablet take 1 tablet by ora l route every day 25 MG - Active vitamin B complex tablet take daily - Active Procedures Procedure Date Offic/outpt E m New Mod Advance Directives Directive Yes / No Effective Date File Name Other Directive No N/A N/A WARNING:The information contained in this section is historical and is provided for information only and does not constitute a legal document or any assurance that the information is still accurate. Please verify the information with the [place] of the legal document before using it for clinical purposes. Encounters Encounter Description Practice Location Reason(s) For Visit Diagnoses Date Provider Providers Copied on Encounter Offic/outpt E m [facility], [address] [place] [address], [id number] tel:[phone] [facility] colorectal complaints (chief complaint) Abdominal bloatingChron ic diarrhea 3 Ryan Foster. [address] [place] [address], [id number] , . tel:[phone] Referring Provider: Morteza Enrique MD, [address] [place], [address]. tel:[phone] Family History Family Member Type Diagnosis Age At Onset Maternal grandfather Problem Cancer, colon 80 Payers Payer name Insurance type Covered libertarian ID Authoriza tion(s) [facility] [id number] Social History Type Description Quantity Date Captured Comments Alcohol Use Details Caffeine Use Details 1 cup per day Tobacco Use Status Current non-smoker Smoking Status Never smoker Non-Smoking Tobacco Use Details : No Details Available : No Details Available Sex Female Vital Signs Date / Time: Height Weight BMI Pulse Rate Blood Pressure Temperature Respiratory Rate Body Surface Area Head Circumference Head Circ. Percentile Wt./Nicanor. Percentile BMI percentile Pulse Ox Inhaled Ox 11:51 AM 62.00 in 53.524 kg (118.00 lbs) 21.5 8 kg/m eter (2) 77 /min 116/70 mm[Hg] 98.00 F 16 /min Chief Complaint And Reason For Visit From encounter dated '03/08/2023 12:00'. colorectal complaints (chief complaint). Description: The patient is a 27-year-old, female referredfor bloating by Dr. Enrique. She endorses approximately 5 years of bloating, diarrhea and fatigue. She can have anywhere between 2-8 stools a day. Sometimes there is a little form to this, and others there is no form. Reports she has been gluten free since 2019, and is unwilling to go on a gluten challenge to pursue testing for celiac disease. She feels that her bloating is improved since removing certain foods out of her diet after recent food allergy testing. She notes intermittent lower abdominal pain which is sometimes unilateral and others bilateral. This seems random and unrelated to her bowel habits. Denies melena, hematochezia, or night waking to pass stools. Reports recent allergy testing suggesting multiple grain allergies and reports history of reaction to nuts, seeds and coconut. Following the of both children she had increased symptoms including palpitations, increased food sensitivities, hot flashes, dizziness, increased fatigue, syncopal episodes. Reports no prior evaluation for syncope. States that she has experienced increased stress following her pregnancies.She reports wanting to pursue cortisol testing. She also indicates that a functional medicine provider recently suggested she has some abnormal glucose levels as well as has low normal" thyroid levels. Reports she is no longer breast feeding (stopped two weeks ago) but has not resumed menstrual cycles.Denies any regular medication use.12/28/22 cbc, cmp and tsh reviewed Reason For Referral Reason For Referral No Information Plan Of Treatment Date Type Action Status Patient Education Using Your Medicines: C are Instructions completed History Of Present Illness Encounter Date Complaint History Of Prese nt Illness colorectal complaints The patien myra is a 27-year-old, female referred for bloating by Dr. Enrique. She endorses approximately 5 years of bloating, diarrhea and fatigue. She can have anywhere between 2-8 stools a day. Sometimes there is a little form to this, and others there is no form. Reports she has been gluten free since 2019, and is unwilling to go on a gluten challenge to pursue testing for celiac disease. She feels that her bloating is improved since removing certain foods out of her diet after recent food allergy testing. She notes intermittent lower abdominal pain which is sometimes unilateral and others bilateral. This seems random and unrelated to her bowel habits. Denies melena, hematochezia, or night waking to pass stools. Reports recent allergy testing suggesting multiple grain allergies and reports history of reaction to nuts, seeds and coconut. Following the of both children she had increased symptoms including palpitations, increased food sensitivities, hot flashes, dizziness, increased fatigue, syncopal episodes. Reports no prior evaluation for syncope. States that she has experienced increased stress following her pregnancies.She reports wanting to pursue cortisol testing. She also indicates that a functional medicine provider recently suggested she has some abnormal glucose levels as well as has low normal thyroid levels. Reports she is no longer breast feeding (stopped two weeks ago) but has not resumed menstrual cycles.Denies any regular medication use.12/28/22 cbc, cmp and tsh reviewed Functional Status Date Functional Assessmen t Pain Score 0/10 Instructions Date Instruction Additional Infor mation No Information Assessments Type Assessment Date assessment Abdominal bloating assessment Chronic diarrhea impression The patient is a 27- year-old, female referred for bloating. The patient reports her bloating is significantly improved since making recent dietary changes. She has ongoing diarrhea, and we discussed considering additional work-up including colonoscopy, SIBO testing, and at length discussed options for celiac testing. The patient reports she may be relocating to another state soon and doesn't want to pursue any further testing right now. She did question possibly pursuing cortisol testing or adrenal saliva testing which were reviewed is not performed here. She will let us know if she would like any further care. Mental Status Date Cognitive Assessment Orientation - [place] ed to time, place, person, situation. Patient Care Teams Name Effective Dates (start - stop) Status Members No Information
--- OUTSIDE RECORDS SUMMARY | 2023-03-08 07:00 | XMS_ITS | Continuity of Care Document ---
Author Organization [facility] Address [address] [place] [phone] Phone Care Team Providers Care Sequins Slinger Name Role Phone Ryan SCOTT, Kristin Unavailable [...] Copied on Encounter Offic/outpt E m [facility], [address] [place] [address], [id number] tel:[phone] [facility] colorectal complaints (chief complaint) Abdominal bloatingChron ic diarrhea 3 Ryan Foster. [address] [place] [address], [id number] , . tel:[phone] Referring Provider: Morteza Enrique MD, [address] [place], [address]. tel:[phone] Family History Family Member Type Diagnosis Age At Onset Maternal grandfather Problem Cancer, colon 80 Payers Payer name Insurance type Covered green party ID Authoriza tion(s) [facility] [id number] Social History Type Description Quantity Date Captured [...] Mental Status Date Cognitive Assessment Orientation - [place] ed to time, place, person, situation. Patient Care Teams Name Effective Dates (start - stop) Status Members No Information
--- OUTSIDE RECORDS SUMMARY | 2025-07-11 18:41 | XMS_ITS | Clinical Summary ---
Author Organization [facility] [employer] Address [address] [place] [address] Care Team Providers Care Sales Activity Manager Name Role Phone Unavailable Primary Care Provider Unavailabl e Source Comments [facility],non-owned Affiliates and Associated Physician Practices is amultiple site organization consisting of ambulatory clinics and hospital sitesin [place], [place], [place] and [place]. This disclosure is being madepursuant to the Care Everywhere program and may not contain all information available regarding this patient. Last updated 18.[facility] [employer] Allergies No known active allergies Medications * Be aware that medications may not be up to date on this document. Alwaysverify current medications with the patient. busPIRone (BUSPAR) 5 MG tablet Take by mouth 3 times daily Active venlafaxine XR 24hr (EFFEXOR XR) 150 MG capsuleIndicati ons:Major Depressive Disorder,Panic Disorder Take 150 mg by mouth daily with breakfast Reasons: Major Depressive Disorder, Panic Disorder Active Vit-Fe Fumarate-FA ( VITAMIN) 28-0.8 MG tabletIndicatio ns: Take 1 tablet by mouth once daily Reasons: Active promethazine (PHENERGAN) 12.5 MG tabletIndicatio ns:pt takes once a day Take 12.5 mg by mouth every 6 hours as needed for Nausea/Vomiting Reasons: pt takes once a day Active metoclopramide (REGLAN) 10 MG tabletIndicatio ns:Nausea and/or Vomiting in Take 1 tablet by mouth 3 times daily before meals Reasons: Nausea and Vomiting in 90 tablet 5 0 Active Additional Information Patient not taking.Reported on 02/12/2020 riboflavin 100 MG tabletIndicatio ns:Frequent Headaches Take 4 tablets by mouth once daily Reasons: Frequent Headaches 120 tablet 11 0 Active Additional Information Patient not taking.Reported on 03/11/2020 aspirin (ASPIRIN) 81 MG chew tabletIndicatio ns:preeclampsia prevention Take 2 tablets by mouth once daily Reasons: preeclampsia prevention 100 tablet 11 0 Active Additional Information Patient not taking.Reported on 02/12/2020 cyanocobalamin (VITAMIN B-12) 1000 MCG tablet Take 5,000 mcg by mouth every 7 days before meal Active hydrOXYzine hcl (ATARAX) 25 MG tablet Take one tablet twice daily as needed for anxiety and two tablets as needed at night for insomnia 120 tablet 2 0 Active hydrOXYzine hcl (ATARAX) 25 MG tabletIndicatio ns:Sedated State Take 25 mg by mouth at bedtime Reasons: State of Being Sedated Active Active Problems Problem Noted Date Diagnosed Date Supervision of high-risk of young prim igravida 03/11/2020 Overview (03/11/2020): 02/26/20 labs: TSH: 1.10, free T4: 0.87 GCT: 93, H/H: 12.4/36 HIV and RPR: NR History of Pyelonephritis this 020 Assessment & Plan (04/01/2020 5:07 PM CDT): Denies current antibiotic suppression for history of pyelonephritis this . Reports current urinary urgency, and darker urine. Denies fever. Denies current N/V. Urine dip with 1+ protein without preeclampsia symptoms, blood pressure 121/80. Benign physical exam today. [facility] Plan: 1. Macrobid sent to pharmacy given complaints and patient history. Patient encouraged to go to [facility] now for urine culture collection. 2. If urine culture positive, recommend antibiotic prophylaxis for the remainder of her . 3. Instructed to go to OB triage with return of N/V, any fever, significant back pain. labor warnings also reinforced. Assessment & Plan (03/11/2020 9:09 AM CDT): Denies current antibiotic suppression for history of pyelonephritis this . [facility]FM Plan: 1. Recommend prompt assessment with any urinary urgency, dysuria, back pain, fever, return of nausea and vomiting. 2. Consider repeat urine culture. less than expected growth 03/11/2020 Assessment & Plan (04/01/2020 4:44 PM CDT): Preliminary report shows growth is meghna, EFW: 6% and AC: 15% MFM Plan: 1. Repeat growth in 3 weeks. 2. Continue twice daily kick counts. 3. testing is not indicated at this juncture 4. Fetus is breech on ultrasound today. Assessment & Plan (03/11/2020 2:13 PM CDT): EFW change from 17% to 6% EFW noted today, compared to growth scan 4 weeks ago Abdominal circumference one month ago: 34%, today the AC is at the 12%. See formal ultrasound report. No signs of placental insufficiency Reassuring testing MFM Plan: 1. testing performed today due to decreased growth, at this juncture testing is not indicated further. 2. Recommend repeating growth again in 3 weeks 3. Encouraged twice daily kick counts. Tobacco use during , antepartum 020 Assessment & Plan (04/01/2020 4:45 PM CDT): Used NRT patch, now down to 1-2 cigarettes per day without patch. MFM Plan: 1. Praised her commitment to cessation and her efforts. Assessment & Plan (03/11/2020 1:58 PM CDT): Continues to smoke 5-6 cigarettes daily. Now interested in NRT with patch MFM plan: 1. Encouraged her plan to start NRT, discussed she is in between a 7-14mg patch, if the 7mg patch is not enough replacement, alert us to prescribe the 14mg patch. Assessment & Plan (02/12/2020 4:36 PM CDT): Reduced to 2 cigarettes daily without NRT. MFM Plan: 1. Continue reduction efforts, encouragement given regarding reduction thus far! Assessment & Plan (12/25/2019 3:40 PM NEON TUBE PUMPER): Has cut down on smoking. Offered nicotine replacement which was declined. Maternal Medicine recommendations: 1. Complete smoking cessation 2. Would benefit from Frequent headaches 12/25/2019 Assessment & Plan (04/01/2020 4:47 PM CDT): Denies current headaches, remain improved. MFM Plan: 1.Continue Riboflavin supplement. 2. Preeclampsia warnings reviewed in detail today and to seek evaluation at OB triage with concern. Assessment & Plan (03/11/2020 1:59 PM CDT): Improved with Riboflavin supplementation. MFM Plan: 1. Continue Riboflavin supplementation. Assessment & Plan (12/25/2019 3:41 PM NEON TUBE PUMPER): Maternal Medicine recommendations: 1. Prescribed riboflavin for headache prevention Anxiety 11/06/2019 Overview (11/06/2019): Stopped taking xanax earlier in --was prescribed by her PCP Assessment & Plan (04/01/2020 4:52 PM CDT): Denies recent alprazolam use. Anxiety not currently problematic. [facility]FM Plan: 1. Continue Effexor and hydroxyzine as needed. 2. Continue abstaining from alprazolam use given risk of withdrawal. Assessment & Plan (03/11/2020 2:09 PM CDT): Shares she has continued to abstain from alprazolam use, continues to have occasional craving for alprazolam but has a goal to remain off the alprazolam. Using hydroxyzine at bedtime with benefit, MFM recommendations: 1. Praised her cessation of alprazolam use; reminded of risk of withdrawal if she were to resume taking alprazolam. Diana verbalized understanding. 2. Continue hydroxyzine as needed for anxiety and insomnia. Assessment & Plan (02/12/2020 4:35 PM CDT): Shares she has stopped alprazolam use, continues to have occasional craving for alprazolam [facility] recommendations: 1. Praised her cessation of alprazolam use; reminded of risk of withdrawal if she were to resume taking alprazolam. Diana verbalized understanding. 2. Continue hydroxyzine as needed for anxiety. Assessment & Plan (12/25/2019 3:40 PM NEON TUBE PUMPER): Has discontinued Xanax. Using venlafaxine. Anxiety decreased. Remains at risk for mood deterioration. Maternal Medicine recommendations: 1. Would benefit from establishing care with a mental health provider Assessment & Plan (11/06/2019 6:13 PM NEON TUBE PUMPER): Currently on BuSpar and Effexor. Does not feel like these medications are helping optimally with her anxiety. First-trimester anatomy survey performed with no demonstration of major malformations on limited survey. Alprazolam (Xanax): U.S. FDA category not assigned. No adequate studies in women. The is at risk for withdrawal symptoms. This medication is excreted in human milk and the use of this medication in moms is not recommended. Buspar [Buspirone]: [place] FDA class B. Limited data. No increased risk of congenital anomalies. It is excreted in breast milk. No strong contraindication to . Effexor [Venlafaxine]: [place] FDA class C. Newborns with 3rd trimester exposure have had problems with needing tube feeding, respiratory support and prolonged hospitalization. Exposure to antidepressants [such as venlafaxine, buproprion, mirtazapine or trazodone) has been associated with an increased risk for small for gestational age newborns. Effexor is excreted in breast milk in variable concentrations. Exposed should be monitored for excessive sedation and adequate weight gain. [email or web address]-[email or web address]-[email or web address]-[email or web address] Maternal Medicine recommendations : 1. Consultation with a clinical pharmacist--referral initiated 2. Reestablish care with psychiatrist and mental health counselor 3. IF Effexor is continued into the 3rd trimester, I recommend communication of maternal use of this medication to dam tender assistant any increased per vision of the within the 1st 48 hr of life Bipolar depression 11/05/2019 Overview (01/29/2020): Stopped lamictal at the beginning of the TSH: 1.41, 12/30/19 Assessment & Plan (04/01/2020 4:51 PM CDT): Continues lamotrigine at 100 daily, has not increased to goal dose of 200mg. Notes mood to be lacking motivation and energy. Reports mild irritability. Has not seen psychiatry yet. Continues Effexor for anxiety also. MFM Plan: 1. Continue lamotrigine and increase to 200mg daily, RX provided. Discussed that 200mg daily is the goal dose for treatment of Bipolar disorder and hopefully her mood will benefit from reaching goal dose. 2. Again reminded of importance to not miss doses of lamotrigine. 3. Reestablish care with psychiatrist and mental health counselor, order placed for [facility] to assist. 4. Reassess mood at all visits. 5. Serial growth every 4 weeks due to venlafaxine use. 6. Notify dam tender assistant of maternal medication use. 7. Recommend additional supervision of within the 1st 48 hr of life to monitor for adverse medication effects. 8. supported. Assessment & Plan (03/11/2020 2:08 PM CDT): Did not increase to 200mg daily of lamotrigine as instructed, and stopped taking medication for 6 days. Re-titrating lamotrigine now per instructions of primary OB. Took 25mg daily for one week, 50mg daily for one week, today she increased to 100mg daily. Denies rash or oral sores. Denies prashant. Denies significant depression. Needs psychiatrist. Maternal Medicine recommendations : 1. Encouraged to continue 50mg daily of the lamotrigine for one more week to reduce occurrence of reaction with lamotrigine, discussed warning signs of Ramy Paul syndrome; reviewed in one week she should increase to 100mg daily, then one week later 200mg daily for goal dose of Bipolar. She should continue venlafaxine daily, hydroxyzine as needed. 2. Reviewed again importance of not skipping doses of mood stabilizer for risk of manic episodes with unopposed SNRI, as well as need to re-titrate lamotrigine again. 2. Reestablish care with psychiatrist and mental health counselor, we will assist with psychiatry appointment. 3. Reassess mood at visits. 4. Serial growth every 4 weeks due to venlafaxine use. 5. Notify dam tender assistant of maternal medication use. 6. Recommend additional supervision of within the 1st 48 hr of life to monitor for adverse medication effects 7. supported and encouraged. Assessment & Plan (02/12/2020 4:33 PM CDT): Compliant with medication regimen, not on goal dose of lamotrigine yet and having depressive symptoms. Needs psychiatrist. Recent TSH: 1.4 Maternal Medicine recommendations : 1. Increase lamotrigine to 200mg daily; continue venlafaxine daily, hydroxyzine as needed. 2. Instructed to notify our office if she develops a severe rash. 3. Reestablish care with psychiatrist and mental health counselor, referral order placed today and we will assist with psychiatry appointment. 4. Reassess mood at visits 5. Serial growth every 4 weeks due to venlafaxine use 6. Notify dam tender assistant of maternal medication use 7. Recommend additional supervision of within the 1st 48 hr of life to monitor for adverse medication effects 8. supported and encouraged Assessment & Plan (12/25/2019 3:49 PM NEON TUBE PUMPER): Restarted Lamictal--currently on titration schedule. Also using venlafaxine. Noticeable improvement in mood. Patient able to return to work. No current side effects from Lamictal/lamotrigine. I emphasized that it sounds like Diana is doing much better with her mood than earlier in the . Remains at risk for mood deterioration. Lamotrigine Lamictal U.S. FDA category D. Associated with a 2.7-3.2% risk of major malformations with first trimester exposure. No adequate well controlled studies in humans. Lamotrigine does cross into the breast milk, at around 30-50 percent of maternal concentration. Breastfed should be monitored for apnea, rash, drowsiness or poor sucking as well as assessing serum levels to rule out toxicity if there is a concern. Effexor [Venlafaxine]: [place] FDA class C. This medication is not associated with increased risk in congenital malformations. Exposure to antidepressants [such as venlafaxine, buproprion, mirtazapine or trazodone) has been associated with an increased risk for small for gestational age newborns. Newborns with 3rd trimester exposure have had problems with needing tube feeding, respiratory support and prolonged hospitalization. Maternal Medicine recommendations : 1. continue lamotrigine titration schedule 2. Ordering thyroid studies today 3. Instructed to notify our office if she develops a severe rash 4. Reestablish care with psychiatrist and mental health counselor 5. reassess mood at visits 6. serial growth every 4 weeks due to venlafaxine use 7. notify dam tender assistant of maternal medication use 8. recommend additional supervision of within the 1st 48 hr of life to monitor for adverse medication effects 9. supported Assessment & Plan (11/06/2019 6:13 PM NEON TUBE PUMPER): Currently on BuSpar and Effexor. Denies any episodes of prashant since discontinuing Lamictal. We discussed that she would still benefit from a mood stabilizer medication. Lamotrigine Lamictal U.S. FDA category D. Associated with a 2.7-3.2% risk of major malformations with first trimester exposure. No adequate well controlled studies in humans. Lamotrigine does cross into the breast milk, at around 30-50 percent of maternal concentration. Breastfed infant should be monitored for apnea, rash, drowsiness or poor sucking as well as assessing serum levels to rule out toxicity if there is a concern. Maternal Medicine recommendations : 1. Consultation with a clinical pharmacist--referral initiated 2. Reestablish care with psychiatrist and mental health counselor Resolved Problems Problem Noted Date Diagnosed Date Resolved Date Intentional drug overdose 06/16/2012 Overview (11/06/2019): At 16yo: intentional overdose for 10-11 pills of 20mg prozac without clear suicidal intent. Depression 06/16/2012 11/06/2019 Panic disorder 06/16/2012 11/06/2019 Family History Medical History Relation Name Comments Depression Mother Suicide Paternal Uncle schizophrenic , depression, shot himself Relation Name Status Comments Mother Paternal Uncle Social History Tobacco Use Types Packs/Day Years Used Date Smoking Tobacco: Every Day Cigarettes 0.3 1 Smokeless Tobacco: Never Tobacco Cessation:Ready to Q uit: No; Counseling Given: No Comments:refused counseling Alcohol Use Standard Drinks/Week Comments Yes 0 (1 standard drink = 0.6 oz pur e alcohol) 5 times a year Comments No Sex and Gender Information Value Date Recorded Sex Assigned at Not on file Legal Sex Female 5:38 AM NEON TUBE PUMPER Gender Identity Not on file Sexual Orientation Not on file Last Filed Vital Signs Vital Sign Reading Time Taken Comments Blood Pressure 129/90 04/22/2020 4:30 PM CDT Pulse 98 04/01/2020 3:51 PM CDT Temperature 37.2 C (99 F) 04/01/2020 3:51 PM CDT Respiratory Rate 18 01/24/2013 12:0 6 PM CDT Oxygen Saturation 99% 06/16/2012 8:40 AM CDT Inhaled Oxygen Concentration - - Weight 76.1 kg (167 lb 12.8 oz) 04/22/2020 3:58 PM CDT Height 162.5 cm (5' 3.98) 12/25/2019 2:47 PM CS T Body Mass Index 28.82 12/25/2019 2:47 PM NEON TUBE PUMPER Plan of Treatment Health Maintenance Due Date Last Done Comments HIV SCREENING 2010 HEPATITIS C SCREENING 06/30/2013 DTAP/TDAP/TD VACCINES (1 - Tdap) 2014 HEPATITIS B VACCINE (1 of 3 - 19+ 3-dose series) 2014 HPV VACCINE (1 - 3-dose SCDM series) 2022 COVID-19 VACCINE ( - 2023-2 5 season) 2025 INFLUENZA VACCINE (#1) 2025 ZOSTER VACCINE (1 of 2) 2045 HIB VACCINE Aged Out No longer eligi ble based on patient's age to complete this topic MENINGOCOCCAL (Group B) VACC INE SHARED DECISION-MAKING Aged Out No longer eligibl e based on patient's age to complete this topic MENINGOCOCCAL GROUPS A/C/Y/W VACCINE Aged Out No longer eligible b ased on patient's age to complete this topic PNEUMOCOCCAL VACCINE Aged Out No long er eligible based on patient's age to complete this topic Insurance Advance Directives Documents on File Type Date Recorded Patient Chief Specialist Leed Expl anation Adv Directive/Living Will/POA 06/18/2012 3:55 PM
[2025-07-11 18:45] VITALS: BP 129/86; PULSE 113; RESP 16; TEMP 36.5; O2SAT 100
--- NOTE | 2025-07-11 18:46 | ED.SKABFB ---
HPI - Skin/Abscess/Foreign Bdy General Chief complaint: Skin/Abscess/Foreign Body Stated complaint: cyst on tailbone Time Seen by Provider: 07/11/25 18:46 Source: patient Mode of arrival: ambulatory Limitations: no limitations History of Present Illness HPI narrative: Diana is a 30-year-old female patient presenting to the clinic today with complaints of possible cyst on her tailbone. She reports over the past 2-3 days she has had pain and swelling to the area and the area began to drain last night. Has taken some ibuprofen 400 mg for pain with some relief. Denies any fevers, chills, body aches. Is having difficulty sitting due to the pain. History of pilonidal cyst when she was a teenager. Had surgery to remove in [place] and does not remember the surgeon. Related Data Home Medications ?Medication ?Instructions ?Recorded ?Confirmed ?Last Taken ?Type alprazolam 0.5 mg tablet 0.5 mg PO TID 03/01/22 07/22/22 Unknown History mirtazapine 7.5 mg tablet mg 07/11/25 Unknown History Allergies Allergy/AdvReac Type Severity Reaction Status Date / Time No Known Allergies Allergy Unknown Verified 07/11/25 18:45 Review of Systems Review of Systems: Pertinent positives per HPI. Patient denies any fever, chills, rash, headache, visual changes, dizziness, cough, runny nose, sore throat, shortness of breath, chest pain, palpitations, nausea, vomiting, diarrhea, constipation, abdominal pain, or any urinary issues. [facility] Past Medical History Medical History Mood disorder Urinary tract infection Anxiety Depression Hx of bipolar disorder Surgical History Surgical History No significant past surgical history Family History Family History Grandparent Diabetes mellitus Carcinoma of colon Hypertension Heart disease Social History Social History Smoking packs per day: 1 Smoking cigarettes per day: 20.0 Years smoked: 4 Smoking pack-years: 4.00 Smoking status: Current some day smoker Tobacco type: cigarettes Additional smoking assessment comments: pt states she only smokes every other day Alcohol intake: former Substance use: never Substance use type: does not use Gender identity (if verbalized by the patient): Female Spiritual care concerns: No Agree to blood products: Yes Comments At the time of my signature, I reviewed and agree with the nursing past medical, surgical, social, and family history. There is no relevant family history pertinent to the patient complaint. Exam Narrative: General: Well-developed, well nourished, in no apparent distress Head: Normocephalic, atraumatic. Cardio: Regular rate and rhythm, s1 and s2 normal, no murmur appreciated. Resp: Clear to auscultation bilaterally, no rhonchi, rales, wheezing or rubs. Integumentary: [place], warm, and dry,ttp, infected pilonidal cyst with minimal fluctuance- redness over the tailbone, right gluteal cleft redness measuring 7.5 x5cm, and left gluteal cleft redness measuring 7.5 x3cm, scant amount of white/yellow discharge expressed and cultured Course Course Emergency Course: Portions of this record may have been created with voice recognition software. Level of Care: Express Care Visit Vital Signs Vital signs: Vital Signs Temperature 36.5 C 07/11/25 18:45 Pulse Rate 113 H 07/11/25 18:45 Respiratory Rate 16 07/11/25 18:45 Blood Pressure 129/86 07/11/25 18:45 Pulse Oximetry 100 07/11/25 18:45 Oxygen Delivery Room Air 07/11/25 18:45 Temperature 36.5 C 07/11/25 18:45 Pulse Rate 113 H 07/11/25 18:45 Respiratory Rate 16 07/11/25 18:45 Blood Pressure 129/86 07/11/25 18:45 Pulse Oximetry 100 07/11/25 18:45 Oxygen Delivery Room Air 07/11/25 18:45 Vital signs reviewed MDM - Skin/Abscess/Foreign Bdy MDM Narrative Medical decision making narrative: At the time of visit patient is resting comfortably on the exam table. Patient appears to be nontoxic. Complaints of possible cyst on her tailbone. She reports over the past 2-3 days she has had pain and swelling to the area and the area began to drain last night. Has taken some ibuprofen 400 mg for pain with some relief. Denies any fevers, chills, body aches. Is having difficulty sitting due to the pain. History of pilonidal cyst when she was a teenager. Had surgery to remove in [place] and does not remember the surgeon. On exam- tailbone is tender palpation with redness over the right and left gluteal cleft. TTP, No induration palpable. Very minimal fluctuance palpableand able to express scant amount of yellowish-white exudate. Wound culture ordered. Labs: Wound culture obtained and sent to the lab Plan: I suspect patient has a pilonidal cyst infection. Prescription for Augmentin, metronidazole, ibuprofen, and hydrocodone was sent to the pharmacy. Recommend follow-up with surgeon next week. Will have her follow-up with Dr. Marsh who is on-call. Supportive measures were discussed with the patient and they voiced understanding discharge instructions and agrees to treatment plan. Return precautions reviewed Differential Diagnosis Differential diagnosis: Likely abscess of skin or subcutaneous tissue and other (Gluteal cleft abscess, pilonidal cyst) Discharge Plan Discharge Clinical Impression: Infected pilonidal cyst Patient Disposition: Home Condition: Stable Instructions: Antibiotic Form, Pilonidal Cyst (ED) Additional Instructions: Take Augmentin, metronidazole, ibuprofen, and hydrocodone as directed May take hydrocodone for moderate to severe pain Keep area clean and dry as much as possible Keep covered if draining Wound culture obtained and sent to the lab May apply warm moist compress to the area 4-6 times daily or complete Sitz baths with Epson salt Go to the emergency room if symptoms worsen-increase in redness, increase in pain, increase in swelling, you develop fever, increase in drainage, or streaking Follow-up with surgeon Dr. Marsh- call office on Monday to schedule an appointment. Patient Language: Yoruba Prescriptions: New amoxicillin-pot clavulanate 875-125 mg tablet 1 tablet PO Q12H 7 Days Qty: 14 0RF metronidazole 500 mg tablet 500 mg PO Q8H 7 Days Qty: 21 0RF ibuprofen 800 mg tablet 800 mg PO TID PRN (Reason: pain) 10 Days Qty: 30 0RF hydrocodone-acetaminophen 5-325 mg tablet 1 tablet PO Q8H PRN (Reason: pain) 3 Days Qty: 10 0RF No Action mirtazapine 7.5 mg tablet alprazolam 0.5 mg tablet 0.5 mg PO TID venlafaxine 150 mg capsule,extended release 24hr 150 mg PO DAILY Qty: 30 2RF venlafaxine 75 mg capsule,extended release 24hr 75 mg PO DAILY Qty: 30 2RF lamotrigine [Lamictal] 100 mg tablet 200 mg PO DAILY Qty: 60 2RF Follow-up/Referrals: Helena Marsh MD [Physician, General Surgery] - 2 Days Clinical Impression: Infected pilonidal cyst Lydia,ROLAND Youssef [Primary Care Provider, Family Practice] Time of Disposition: 19:03 Quality NIHSS Nursing Documentation ED NIHSS nursing documentation: reviewed/agree
== END 2025-07-11 19:09 | disposition home or self-care (01) ==
PROVIDERS: Emergency Provider Nurse Practitioner Family; PCP Physician Assistant
DX: L05.91 Pilonidal cyst without abscess (principal); F17.210 Nicotine dependence, cigarettes, uncomplicated; F41.9 Anxiety disorder, unspecified; F31.9 Bipolar disorder, unspecified
CPT/HCPCS: 87070; 87075; 87205; 99213; G0463

== ENCOUNTER 2025-08-09 16:43 | Emergency (ER) | payer OTHER, SELFPAY ==
--- OUTSIDE RECORDS SUMMARY | 2023-03-08 07:00 | XMS_ITS | Continuity of Care Document ---
Author Organization [facility] Address [address] [place] [phone] Phone Care Team Providers Care Block Machine Operator Name Role Phone Ryan SCOTT, Kristin Unavailable [...] Copied on Encounter Offic/outpt E m [facility], [address] [place] [address], [id number] tel:[phone] [facility] colorectal complaints (chief complaint) Abdominal bloatingChron ic diarrhea 3 Ryan Foster. [address] [place] [address], [id number] , . tel:[phone] Referring Provider: Morteza Enrique MD, [address] [place], [address]. tel:[phone] Family History Family Member Type Diagnosis Age At Onset Maternal grandfather Problem Cancer, colon 80 Payers Payer name Insurance type Covered constitution party ID Authoriza tion(s) [facility] [id number] Social History Type Description Quantity Date Captured [...] Mental Status Date Cognitive Assessment Orientation - [place] ed to time, place, person, situation. Patient Care Teams Name Effective Dates (start - stop) Status Members No Information
--- OUTSIDE RECORDS SUMMARY | 2023-03-08 07:00 | XMS_ITS | Continuity of Care Document ---
Author Organization [facility] Address [address] [place] [phone] Phone Care Team Providers Care Buggy Ladle Tender Name Role Phone Ryan SCOTT, Kristin Unavailable [...] Copied on Encounter Offic/outpt E m [facility], [address] [place] [address], [id number] tel:[phone] [facility] colorectal complaints (chief complaint) Abdominal bloatingChron ic diarrhea 3 Ryan Foster. [address] [place] [address], [id number] , . tel:[phone] Referring Provider: Morteza Enrique MD, [address] [place], [address]. tel:[phone] Family History Family Member Type Diagnosis Age At Onset Maternal grandfather Problem Cancer, colon 80 Payers Payer name Insurance type Covered libertarian ID Authoriza tion(s) [facility] [id number] Social History Type Description Quantity Date Captured [...] Mental Status Date Cognitive Assessment Orientation - [place] ed to time, place, person, situation. Patient Care Teams Name Effective Dates (start - stop) Status Members No Information
--- OUTSIDE RECORDS SUMMARY | 2025-08-09 16:45 | XMS_ITS | Data Portability ---
Author Organization [facility] Address [address] [place] [address] Assessment Encounter Date Assessment Date Assessment LastModified by Organization Details LastModified Time 04/14/2020 04/14/2020 Patient is ___weeks . Discussed plan. [email or web address] Not available 04/14/2020 09:40:15 Plan of Treatment Reminders Order Date Submit Date Provider Last Modified By Organization Details Last Modified Time Details Appointments None recorded. Lab None recorded. Referral None recorded. Procedures None recorded. Surgeries None recorded. Imaging None recorded. Medication Orders Loestrin Fe 1/20 (28-Day) 1 mg-20 mcg (21)/75 mg (7) tablet 2019 020 INTERFACE [id number], [address], [place], [id number], 0 13:01:01 Loestrin Fe 1.5/30 (28-Day) 1.5 mg-30 mcg (21)/75 mg (7) tablet 2019 020 [email or web address] [facility] #58248, [address], [place], [id number], 0 14:29:56 [place] 5 mg-325 mg tablet 2019 020 [email or web address] [facility] #45531, [address], [place], [id number], 0 14:30:04 labetalol 200 mg tablet 2019 020 [email or web address] [facility] #16450, [address], [place], [place], [id number], 0 14:30:08 Patient TargetsNo targets recorded. Patient InstructionsNo instructions recorded. Reason for Referral None Reported. Results Created Date Observation Date Name Description Value Unit Range Abnormal Flag Note LastModifiedBy Organization Detail LastModifiedTime 04/02/20 20 04/04/2020 cultu re, urine specimen source Urine - Void Not Available [facility] ([facility]) [address] [place] [address] Dr Do, [place], [address], 04/04/2020 22:56:28 04/02/20 20 04/04/2020 cultu re, urine culture, urine See Below 10,00 0-15, 000 Mixed Gram Posit poncho Organ isms Three or more organ isms prese nt likel y repre senti ng conta minat ion durin g colle ction by patie nt's uroge nital , skin, and/o r fecal mary ann . Organ ism ident ifica tion and sensi tivit y asses sment are not recom macrina d. Speci men recol lecti on is recom macrina d. Not Available [facility] ([facility]) [address] [place] [address] Dr Do, [place], [address], 04/04/2020 22:56:28 04/02/20 20 04/04/2020 urina lysis compl ete, refle x cultu re urine type Voided Not Available [facility] ([facility]) [address] [place] [address] Dr Do, [place], [address], 04/05/2020 04:07:09 04/02/20 20 04/04/2020 urina lysis compl ete, refle x cultu re urine color DK YELLOW yellow Not Available [facility] [address] [place] [address] Dr Do, [place], [address], 04/05/2020 04:07:09 04/02/20 20 04/04/2020 urina lysis compl ete, refle x cultu re urine appearance CLOUDY clear abnormal Not Available [facility] ([facility]) [address] [place] [address] Dr Do, [place], [address], 04/05/2020 04:07:09 04/02/20 20 04/04/2020 urina lysis compl ete, refle x cultu re urine specific gravity 1.024 1.005- 1.[address] [facility] ([facility]) [address] [place] [address] Dr Do, [place], [address], 04/05/2020 04:07:09 04/02/20 20 04/04/2020 urina lysis compl ete, refle x cultu re urine pH 7.0 5.0-9. [address] [facility] ([facility]) [address] [place] [address] Dr Do, [place], [address], 04/05/2020 04:07:09 04/02/20 20 04/04/2020 urina lysis compl ete, refle x cultu re urine leukocytes esterase TRACE negati ve abnormal Not Available [facility] [address] [place] [address] Dr Do, [place], [address], 04/05/2020 04:07:09 04/02/20 20 04/04/2020 urina lysis compl ete, refle x cultu re urine nitrites NEGATI VE negati ve Not Available [facility] [address] [place] [address] Dr Do, [place], [address], 04/05/2020 04:07:09 04/02/20 20 04/04/2020 urina lysis compl ete, refle x cultu re urine protein TRACE negati ve abnormal Not Available [facility] [address] [place] [address] Dr Do, [place], [address], 04/05/2020 04:07:09 04/02/20 20 04/04/2020 urina lysis compl ete, refle x cultu re urine glucose NEGATI VE negati ve Not Available [facility] [address] [place] [address] Dr Do, [place], [address], 04/05/2020 04:07:09 04/02/20 20 04/04/2020 urina lysis compl ete, refle x cultu re urine ketones NEGATI VE negati ve Not Available [facility] [address] [place] [address] Dr Do, [place], [address], 04/05/2020 04:07:09 04/02/20 20 04/04/2020 urina lysis compl ete, refle x cultu re urine urobilinogen 0.2 E.U./ dL 0.2-1. 0 Not Available [facility] [address] [place] [address] Dr Do, [place], [address], 04/05/2020 04:07:09 04/02/20 20 04/04/2020 urina lysis compl ete, refle x cultu re urine bilirubin NEGATI VE negati ve Not Available [facility] [address] [place] [address] Dr Do, [place], [address], 04/05/2020 04:07:09 04/02/20 20 04/04/2020 urina lysis compl ete, refle x cultu re urine blood NEGATI VE negati ve Not Available [facility] [address] [place] [address] Dr Do, [place], [address], 04/05/2020 04:07:09 04/02/20 20 04/04/2020 urina lysis , micro scopi c urine WBC 20-50 /hpf 0-2 abnormal Not Available [facility] [address] [place] [address] Dr Do, [place], [address], 04/05/2020 04:07:10 04/02/20 20 04/04/2020 urina lysis , micro scopi c urine RBC 0-2 /hpf 0-2 Not Available [facility] ([facility]) [address] [place] [address] Dr Do, [place], [address], 04/05/2020 04:07:10 04/02/20 20 04/04/2020 urina lysis , micro scopi c urine epithelial cells 5-10 /hpf 0-2 abnormal Not Available [facility] ([facility]) [address] [place] [address] Dr Do, [place], [address], 04/05/2020 04:07:10 04/02/20 20 04/04/2020 urina lysis , micro scopi c urine bacteria 2+ /hpf none seen abnormal Not Available [facility] ([facility]) [address] [place] [address] Dr Do, [place], [address], 04/05/2020 04:07:10 04/02/20 20 04/04/2020 urina lysis , micro scopi c urine casts 2-5 Hyalin e /lpf 0-2 hyalin e abnormal Not Available [facility] [address] [place] [address] Dr Do, [place], [address], 04/05/2020 04:07:10 04/02/20 20 04/05/2020 cultu re, urine specimen source Urine Not Available [facility] ([facility]) [address] [place] [address] Dr Do, [place], [address], 04/05/2020 04:07:11 04/02/20 20 04/05/2020 cultu re, urine culture, urine See Below No growt h Not Available [facility] ([facility]) [address], [place], [address], 04/05/2020 04:07:11 04/02/20 20 04/02/2020 urina lysis , dipst ick Leukocytes ++ Not Available [facility] [address], [place], [address], 04/02/2020 17:20:23 04/02/20 20 04/02/2020 urina lysis , dipst ick Nitrite neg Not Available [facility] [address], [place], [address], 04/02/2020 17:20:23 04/02/20 20 04/02/2020 urina lysis , dipst ick Urobilinogen normal Not Available [facility] [address], [place], [address], 04/02/2020 17:20:23 04/02/20 20 04/02/2020 urina lysis , dipst ick Protein trace Not Available [facility] [address], [place], [address], 04/02/2020 17:20:23 04/02/20 20 04/02/2020 urina lysis , dipst ick pH 8 Not Available [facility] [address], [place], [address], 04/02/2020 17:20:23 04/02/20 20 04/02/2020 urina lysis , dipst ick Blood trace Not Available [facility] [address], [place], [address], 04/02/2020 17:20:23 04/02/20 20 04/02/2020 urina lysis , dipst ick Ketone neg Not Available [facility] [address], [place], [address], 04/02/2020 17:20:23 04/02/20 20 04/02/2020 urina lysis , dipst ick Bilirubin neg Not Available [facility] [address], [place], [address], 04/02/2020 17:20:23 04/02/20 20 04/02/2020 urina lysis , dipst ick Glucose normal Not Available [facility] [address], [place], [address], 04/02/2020 17:20:23 04/14/20 20 04/16/2020 strep tococ cus group B DNA GB specimen source Vagina l/Rect al Not Available [facility]) [address], [place], [address], 04/16/2020 12:03:56 04/14/20 20 04/16/2020 strep tococ cus group B DNA spec type Cultur e Swab Not Available [facility] ([facility]) [address], [place], [address], 04/16/2020 12:03:56 04/14/20 20 04/16/2020 strep tococ cus group B DNA group B strep by PCR NOT DETECT ED not detect ed Inter preta tion: A posit poncho resul t indic ates the detec tion of Group B Strep tococ cus DNA but not neces saril y the prese nce of viabl e organ isms; it is presu mptiv e for the prese nce of Group B Strep tococ cus. A negat poncho resul t does not exclu de the possi bilit y of infec tion since very low level s of micro organ ism or sampl ing error may cause a false negat poncho resul t. This assay is highl y accur ate, but rare false posit poncho and false negat poncho resul ts may occur . Metho dolog y: This resul t was deter mined using the FDA-c leare d BD Max GBS Assay . The BD Max GBS Assay is a quali tativ e in vitro diagn ostic test for the rapid detec tion of Group B Strep tococ cus (GBS) DNA in vagin al/re ctal speci mens from prepa rtum or intra partu m women utili obi real- time PCR. Perfo rmed by [facility], [address], [place] [address] , Marlo Fox ra, DO, Labor atory Direc tor. Not Available [facility] ([facility]) [address], [place], [address], 04/16/2020 12:03:56 04/03/20 20 04/01/2020 US, obste tric, follo w-up No observ ation record ed. [email or web address] [facility] [address] [place] [address], [address], 05/05/2020 17:57:00 04/03/20 20 04/01/2020 US, obste tric, follo w-up No observ ation record ed. [email or web address] [facility] [address] [place] [address], [address], 12/10/2020 17:58:10 04/22/20 20 04/22/2020 US, obste tric, follo w-up No observ ation record ed. [email or web address] [facility] [address] [place] [address], [address], 05/05/2020 17:46:47 04/22/20 20 04/22/2020 US, obste tric, mater nal evalu ation + anato my No observ ation record ed. [email or web address] [facility] [address] [place] [address], [address], 12/13/2020 12:36:44 04/22/20 20 04/22/2020 US, obste tric, mater nal evalu ation + anato my No observ ation record ed. [email or web address] [facility] [address] [place], [address], 12/13/2020 12:37:25 04/23/20 20 04/22/2020 US, obste tric, mater nal evalu ation + anato my No observ ation record ed. [email or web address] [facility] [address] [place], [address], 12/13/2020 12:54:34 Result Notes None recorded. Problems Name Problem SNOMED Code Status Onset Date Resolution Date Notes Provider Name and Address Organization Details Recorded Time Past medicati on 030542520 Completed [facility] - hx lamictal & xanax in pregnanc y and growth restrict ion -rpt u/s & OV 04/01/20 at 3:15pm [facility] disconti nued xanax started on lamotrig ine, vistaril with effexor - U/S [id number]. See consult notes! Gianna [facility], [facility] 0 14:58:32 Venereal disease screenin g Active 2010 Screenin g examinat ion for venereal disease; Recorded Elsewher e: No Locat ion: [facility] S ource: EHR Gas Technician sarah: N [place] ID: 0001 Emanuel lable Time: 09:00:00 AM Not Available [facility] 0 21:12:54 Leukorrh ea [id number] Active 2010 Leukorrh ea, not specifie d as infectiv e;Record ed Elsewher e: No Locat ion: [facility] S ource: EHR Gas Technician sarah: N [place] ID: 0001 Emanuel lable Time: 09:00:00 AM Not Available [facility] 0 21:12:55 Educatio n about sexually transmit stanley disease preventi on Active 2010 Counseli ng on other sexually transmit stanley diseases ;Recorde d Elsewher e: No Locat ion: [facility] S ource: EHR Gas Technician sarah: N Practi ce ID: 0001 Emanuel lable Time: 09:00:00 AM Not Available [facility] 0 21:12:55 Pregnanc y test negative [id number] Active 2010 Pregnanc y examinat ion or test, negative result;R ecorded Elsewher e: No Locat ion: [facility] S ource: EHR Gas Technician sarah: N Practi ce ID: 0001 Emanuel lable Time: 09:00:00 AM Not Available [facility] 0 21:12:56 Uses oral contrace ption 1992510 Active 2010 Surveill ance of contrace ptive pill;Pra ctice ID: 0001 Not Available [facility] 0 21:12:57 Educatio n Active 2010 Other general counseli ng and advice on contrace ptive manageme nt;Recor ded Elsewher e: No Locat ion: [facility] S ource: EHR Gas Technician sarah: N Practi ce ID: 0001 Emanuel lable Time: 01:30:00 PM Not Available [facility] 0 21:12:55 Family planning surveill ance Active 2011 Surveill ance of other contrace ptive method;R ecorded Elsewher e: No Locat ion: [facility] est[facility] S ource: EHR Gas Technician sarah: N Practi ce ID: 0001 Emanuel lable Time: 11:00:00 AM Not Available [facility] 0 21:12:56 Ill-defi suraj intestin al infectio n Active 2011 No Show Fee;Prac esther ID: 0001 Not Available [facility] 0 21:12:57 Vaginiti s and vulvovag initis Active 2011 Vaginiti s;Record ed Elsewher e: No Locat ion: [facility] S ource: EHR Gas Technician sarah: N Practi ce ID: 0001 Emanuel lable Time: 10:30:00 AM Not Available [facility] 0 21:12:56 Urinary tract infectio us disease 70993194 Active 2012 Urinary Tract Infectio n;Record ed Elsewher e: No Locat ion: Seamus esteves [facility] S ource: EHR Gas Technician sarah: N [place] ID: 0001 Emanuel lable Time: 01:00:00 PM Not Available [facility] 0 21:12:54 Verruca vulgaris 98709374 Active 2012 Other specifie d viral warts;Re corded Elsewher e: No Locat ion: [facility] S ource: EHR Gas Technician sarah: N [place] ID: 0001 Emanuel lable Time: 01:00:00 PM Not Available [facility] 0 21:12:56 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;Re corded Elsewher e: No Locat ion: [facility] S ource: EHR [facility] sarah: N [place] ID: 0001 Emanuel lable Time: 09:15:00 AM Not Available [facility] 0 21:12:54 Abdomina l pain 00190591 Active 2012 Abdomina l Pain;Rec orded Elsewher e: No Locat ion: [facility] S ource: EHR [facility] sarah: N [place] ID: 0001 Emanuel lable Time: 09:15:00 AM Not Available [facility] 0 21:12:54 Speciali zed medical examinat ion Active 2012 Gynecolo gical Examinat ion;Fabiano rded Elsewher e: No Locat ion: [facility] S ource: EHR Gas Technician sarah: N [place] ID: 0001 Emanuel lable Time: 09:15:00 AM Not Available [facility] 0 21:12:55 Amenorrh ea 44937456 Active 2015 Amenorrh ea, unspecif ied;Fabiano rded Elsewher e: No Locat ion: [facility] S ource: EHR [facility] sarah: N [place] ID: 0001 Emanuel lable Time: 01:30:00 PM Not Available [facility] 0 21:12:[address] Concept Active 2015 Encntr for general adult medical exam w/o abnormal findings ;Recorde d Elsewher e: No Locat ion: [facility] S ource: EHR Gas Technician sarah: N Practi ce ID: 0001 Emanuel lable Time: 01:30:00 PM Not Available [facility] 0 21:12:56 Pelvic and perineal pain 850231281 Active 2015 Pelvic and perineal pain;Rec orded Elsewher e: No Locat ion: [facility] S ource: EHR Gas Technician sarah: N Practi ce ID: 0001 Emanuel lable Time: 02:00:00 PM Not Available [facility] 0 21:12:56 Pregnanc y detectio n examinat ion Active 2018 Encounte r for pregnanc y test, result positive ;Recorde d Elsewher e: No Locat ion: [facility] est[facility] S ource: EHR Gas Technician sarah: N Practi ce ID: 0001 Emanuel lable Time: 01:00:00 PM Not Available [facility] 0 21:12:[address] Concept Active 2018 Encntr for hvac technician exam (general ) (routine ) w/o abn findings ;Recorde d Elsewher e: No Locat ion: [facility] S ource: EHR Gas Technician sarah: N Practi ce ID: 0001 Emanuel lable Time: 01:00:00 PM Not Available [facility] 0 21:12:55 Mental disorder Active 2018 Mood disorder ;Recorde d Elsewher e: No Locat ion: [facility] S ource: EHR Gas Technician sarah: N Practi ce ID: 0001 Emanuel lable Time: 01:00:00 PM Not Available [facility] 0 21:12:55 Antenata l screenin g Active 2019 Encounte r for antenata l screenin g for nuchal transluc ency;Rec orded Elsewher e: No Locat ion: [facility] est[facility] S ource: EHR Gas Technician sarah: N Practi ce ID: 0001 Emanuel lable Time: 01:30:00 PM Not Available [facility] 0 21:12:54 Nausea and vomiting 23770136 Active 2019 Nausea with vomiting , unspecif ied;Prac esther ID: 0001 Not Available [facility] 0 21:12:54 Gestatio n period, 16 weeks 41853562 Active 2019 16 weeks gestatio n of pregnanc y;Practi ce ID: 0001 Not Available [facility] 0 21:12:54 Pregnanc y, childbir th and puerperi um finding Active 2019 Encntr for suprvsn of normal first preg, second trimeste r;Practi ce ID: 0001 Not Available [facility] 0 21:12:54 Pregnanc y, childbir th and puerperi um finding Active 2019 Encntr for suprvsn of normal first pregnanc y, unsp trimeste r;Practi ce ID: 0001 Not Available [facility] 0 21:12:54 Pregnanc y 89215123 Completed 201905/21/2020 Travis Mcdowell MD [address], [place], [address], [facility] 0 12:59:29 Problem Notes None recorded. Procedures Surgical History Date Name Laterality Status Provider Name and Address Organization Details Recorded Time 0 section completed [facility] 05/01/2020 10:10:38 9 Date of Last Pap Smear completed [facility] 05/01/2020 10:07:49 Imaging Results None recorded. Procedure Notes None recorded. Medical Equipment None Reported. Allergies No known drug allergies Medications Name Sig Start Date Stop Date Status Note LastModified by Organization Details LastModified Time venlafaxi ne ER 37.5 mg capsule,e xtended release 24 hr take 1 capsule by oral route every day with food active Prescrib ed Elsewher e: Yes Loca tion: [facility] M odify By: sienna tirado DateTime : 09/25/20 19 01:00:00 PM Not Available Not Available Not Available venlafaxi ne ER 75 mg capsule,e xtended release 24 hr TAKE 1 CAPSULE BY MOUTH EVERY DAY IN THE MORNING active Not Available Not Available No t Available labetalol 200 mg tablet Take 1 tablet twice a day by oral route. 08/10 completed Not Available Not Available Not Available alprazola m 1 mg tablet TAKE 1 TABLET BY MOUTH TWICE DAILY NEEDED active Not Available Not Available No t Available Loestrin Fe 11/18 (28-Day) 1 mg-20 mcg (21)/75 mg (7) tablet Take 1 tablet every day by oral route. 2019 active Not Available Not Available Not Avai lable hydrocodo ne 5 mg-acetam inophen 325 mg tablet Take 1 tablet every 6 hours by oral route. 08/10 completed Not Available Not Available Not Available promethaz ine 12.5 mg tablet Take 1 tablet 4 times a day by oral route as needed. 02/24 completed Not Available Not Available Not Available clonazepa m 0.5 mg tablet 08/10 completed Not Available Not Available Not Available Diflucan 150 mg tablet take 1 tablet (150MG) by oral route once 10/03 completed Prescrib ed Elsewher e: No Locat ion: [facility] M odify By: [email or web address] trick En counter DateTime : 07/31/20 13 11:35:47 AM Not Available Not Available Not Available venlafaxi ne ER 150 mg capsule,e xtended release 24 hr TAKE 1 CAPSULE BY MOUTH EVERY DAY active Not Available Not Available No t Available alprazola m 0.25 mg tablet active Not Available Not Available Not Available Metrogel Vaginal 0.75 % (37.5 mg/5 gram) insert 1 applicat orful (37.5MG) by vaginal route every day at bedtime 10/03 completed Prescrib ed Elsewher e: No Locat ion: [facility] M odify By: [email or web address] trick En counter DateTime : 07/31/20 13 11:35:47 AM Not Available Not Available Not Available famotidin e 20 mg tablet 05/01 completed Not Available Not Available Not Available Depo-Prov era 150 mg/mL intramusc ular suspensio n inject 1 millilit er (150MG) by intramus cular route every 3 months 06/22 completed Prescrib ed Elsewher e: No Locat ion: [facility] odify By: roya vigiluntjudith DateTime : 02/19/20 14 11:05:52 AM Not Available Not Available Not Available Flagyl 500 mg tablet take 1 tablet (500MG) by oral route 2 times every day 07/24 completed Prescrib ed Elsewher e: No Locat ion: [facility] odify By: [email or web address] trick En counter DateTime : 11/15/19 13 04:04:01 PM Not Available Not Available Not Available doxycycli ne monohydra te 100 mg capsule TAKE 1 CAPSULE BY MOUTH TWICE DAILY FOR 7 DAYS active Not Available Not Available No t Available Lamictal 25 mg tablet take 2 tablet by oral route 2 times every day active Prescrib ed Elsewher e: Yes Loca tion: [facility] odify By: sienna tirado DateTime : 09/25/20 19 01:00:00 PM Not Available Not Available Not Available mirtazapi ne 30 mg tablet TAKE 1 TABLET BY MOUTH EVERY DAY AT BEDTIME active Not Available Not Available No t Available Prozac 20 mg capsule take 1 capsule by oral route every day in the morning 06/22 completed Prescrib ed Elsewher e: Yes Loca tion: [facility] odify By: amfelix vigilunter DateTime : 08/30/20 12 10:30:00 AM Not Available Not Available Not Available nitrofura ntoin macrocrys aniket 100 mg capsule 02/24 completed Not Available Not Available Not Available Aldara 5 % topical cream packet apply by topical route 3 times every week to the affected area(s) before bedtime wash off after 8 hours 07/24 completed Prescrib ed Elsewher e: No Locat ion: [facility] odify By: [email or web address] trick En counter DateTime : 11/21/19 13 09:15:00 AM Not Available Not Available Not Available Condylox 0.5 % topical gel apply by topical route 2 times every day for 3 consecut poncho days, then disconti nue for 4 consecut poncho days. This one week cycle of treatmen t may be repeated until there is no visible wart tissue or for a maximum of four cycles. 07/24 completed Prescrib ed Elsewher e: No Locat ion: [facility] odify By: [email or web address] trick En counter DateTime : 11/21/19 13 09:15:00 AM Not Available Not Available Not Available hydroxyzi ne HCl 25 mg tablet 05/01 completed Not Available Not Available Not Available mirtazapi ne 15 mg tablet TAKE 1 TABLET BY MOUTH EVERY DAY AT BEDTIME active Not Available Not Available No t Available Ativan 0.5 mg tablet take 2 tablet by oral route 3 times every day as needed 09/25 completed Prescrib ed Elsewher e: Yes Loca tion: [facility] odify By: sienna Moreno r DateTime : 06/22/20 16 02:00:00 PM Not Available Not Available Not Available Vitamin D2 1,250 mcg (50,000 unit) capsule Take 1 capsule every week by oral route as directed . 05/01 completed Take for 12 weeks Not Available Not Available Not Available Paxil 10 mg tablet take 1 tablet by oral route every day 09/25 completed Prescrib ed Elsewher e: Yes Loca tion: [facility] odify By: jisa Moreno r DateTime : 06/22/20 16 02:00:00 PM Not Available Not Available Not Available ondansetr on 4 mg disintegr ating tablet 08/10 completed Not Available Not Available Not Available Klonopin 1 mg tablet take 1 tablet by oral route 3 times every day 06/22 completed Prescrib ed Elsewher e: Yes Loca tion: [facility] odify By: roya aviles DateTime : 11/09/19 13 01:30:00 PM Not Available Not Available Not Available clotrimaz ole 1 % topical cream apply by topical route 2 times every day to the affected and surround ing areas of skin in the morning and evening 11/07 completed Prescrib ed Elsewher e: No Locat ion: [facility] odify By: [email or web address] trick En counter DateTime : 08/30/20 12 10:30:00 AM Not Available Not Available Not Available lamotrigi ne 100 mg tablet TAKE 1 TABLET BY MOUTH TWICE DAILY active Not Available Not Available No t Available metoclopr amide 10 mg tablet 05/01 completed Not Available Not Available Not Available nicotine 7 mg/24 hr daily transderm al patch 05/01 completed Not Available Not Available Not Available buspirone 15 mg tablet Take 1 tablet twice a day by oral route as directed . 03/10 completed Follow directio ns on sheet given in office Not Available Not Available Not Available Depo-Prov era 150 mg/mL intramusc ular syringe inject 1 millilit er by intramus cular route every 3 months 09/25 completed Prescrib ed Elsewher e: No Locat ion: [facility] odify By: sienna tirado DateTime : 08/04/20 14 01:36:16 PM Not Available Not Available Not Available Metadate CD 10 mg capsule,e xtended release take 1 capsule by oral route every day in the morning before breakfas t 08/30 completed Prescrib ed Elsewher e: Yes Loca tion: [facility] odify By: [email or web address] trick En counter DateTime : 08/03/20 11 09:00:00 AM Not Available Not Available Not Available nitrofura ntoin monohydra te/macroc rystals 100 mg capsule 05/01 completed Not Available Not Available Not Available venlafaxi ne 02/24 completed Not Available Not Available Not Available Lamictal 05/01 completed Not Available Not Available Not Available 08/10 completed Not Available Not Available Not Available Blisovi Fe 1.5/30 (28) 1.5 mg-30 mcg (21)/75 mg (7) tablet Take 1 tablet every day by oral route. 08/10 completed Not Available Not Available Not Available Vitals Date Recorded Body weight Systolic And Diastolic Provider Name and Address Organization Details Last Updated DateTime 04/14/2020 00665.21466 g 134/89 mm[Hg] Amaya Valentell [place] - [facility] 04/14/2020 09:45:13 Date Recorded Body weight Provider Name an d Address Organization Details Last Updated DateTime 05/01/2020 [id number] anson Mcdowell MD [address], [place], [address], [facility] 05/21/2020 12:59:26 Date Recorded Body height Body mass index (BMI) Systolic And Diastolic Provider Name and Address Organization Details Last Updated DateTime 05/01/2020 160.02 cm 27.1 kg/m2 142/107 mm[Hg] Steph Pena [facility] 05/01/2020 10:07:32 Date Recorded Body weight Provider Name an d Address Organization Details Last Updated DateTime 05/08/2020 [id number] anson Mcdowell MD [address], [place], [address], [facility] 05/21/2020 12:59:26 Date Recorded Body height Body mass index (BMI) Systolic And Diastolic Provider Name and Address Organization Details Last Updated DateTime 05/08/2020 160.02 cm 26.2 kg/m2 122/86 mm[Hg] Gisell [facility] 05/08/2020 15:35:52 Date Recorded Body weight Provider Name an d Address Organization Details Last Updated DateTime 05/21/2020 [id number] anson Mcdowell MD [address], [place], [address], [facility] 05/21/2020 12:59:26 Date Recorded Body height Body mass index (BMI) Systolic And Diastolic Provider Name and Address Organization Details Last Updated DateTime 05/21/2020 160.02 cm 25.2 kg/m2 117/85 mm[Hg] Gisell [facility] 05/21/2020 12:23:13 Date Recorded Body height Body mass index (BMI) Body weight Systolic And Diastolic Systolic And Diastolic Provider Name and Address Organization Details Last Updated DateTime 08/10/2020 160.02 cm 24.3 kg/m2 74565.15 g 142/84 mm[Hg] 126/82 mm[Hg] Gisell Bonilla [facility] 0 14:29:50 Social History Question Answer Notes LastModified by Organizat vMobo Details LastModified Time Tobacco Smoking Status Current Every Day Smoker Lora Wayne jacinda, [facility] 02/25/2020 15:08:33 What Was The Date Of Your Most Recent Tobacco Screening? 05/01/2020 [email or web address] Information not available 05/01/2020 How Much Tobacco Do You Smoke? 0.25 PPD [email or web address] Information not available 05/01/2020 Sex: Unknown Functional Status Question Answer Note LastModified by Organizat ion Details LastModified Time What is your level of alcohol consumption? None Information not available 02/25/2020 What is your exercise level? Occasional Information not available 02/25/2020 Mental Status None recorded. Family History Relationship Description Onset Age of this Age Resolved Age Notes LastModified by Organization Details LastModified Time Mother Disorder of thyroid gland [email or web address] l Not available 02/16/2020 12:34:30 Maternal Grandmother Disorder of thyroid gland [email or web address] l Not available 02/16/2020 12:34:30 Maternal Grandfather Family history of cancer of colon cleravatanaku l Not available 02/16/2020 12:34:47 Paternal Grandmother Diabetes mellitus [email or web address] l Not available 02/16/2020 12:35:05 Paternal Grandfather Family history of malignant neoplasm [email or web address] l Not available 02/16/2020 12:35:23 Notes:Maternal grandfather: Cancer, colon Maternal grandmother: Thyroid disease Mother: Thyroid disease Paternal grandfather: cancer Paternal grandmother: Diabetes mellitus Medical History Condition Response Other Y Gynecological History Statement/Question Response Date of Last Pap Smear 09/25/2019 Date of LMP 08/07/2019 LMP Approximate Obstetrics History GPAL:G 1 P 2 0 0 2 Type Value Full Term 2 Living 2 Total 1 Past Encounters Encounter ID Performer Location Encounter Start Date Encounter Closed Date Diagnosis/Indication Diagnosis SNOMED-CT Code Diagnosis ICD10 Code Diagnosis IMO Codes [id number] [address],[place] [address] 02/25/2020 14:51:13 02/26/2020 10:44:09 Routine care 715576199 Z34.93 Will check tsh and ft4 in addition to 28 week labs [id number] Yeni Clarke [facility] [address],[place] [address] 03/10/2020 14:15:52 03/10/2020 15:47:18 Routine care [id number] Z34.93 Will check tsh and ft4 in addition to 28 week labs [id number] [address],[place] [address] 04/02/2020 16:50:09 04/22/2020 11:22:40 Routine care [id number] Z34.93 [id number] Edilma Haines MD [facility] [address],[place] [address] 04/14/2020 09:38:37 04/14/2020 10:02:25 Normal [id number] Z34.93 [id number] Travis Mcdowell MD [facility] [address],[place] [address] 05/01/2020 09:43:02 05/01/2020 11:07:50 -induced hypertension 70065231 O13.9 This patient is a 24-year-ol d female who presents forpregnan cy-induced hypertensi on follow-up. She is got elevated blood pressure today. We agreed to start antihypert ensive. She willcheck her blood pressures at home as she has been doing. She has been [id number] t home. She has the same today. We will start 200 oflabetalo l. [id number] Travis Mcdowell MD [facility] [address],[place] [address] 05/08/2020 15:30:33 05/08/2020 16:12:27 Postoperative pain 421148612 G89.18 Patient is a 24-year-ol d female presents for postop follow-up. She is one-week postop from a delivery.S he has noticed some mood changes since the of her child. She suddenly started having some sadness and crying episodes. She alreadyhas establishe d psychiatri c diagnoses. She is on medication for depression andmood concerns.Sarah esteves discussed treatment options. We agreed to observe this issue. She will contact us if this issue worsens. Her incision was examined. Her incision is clean dry and intact. She does still have some pain issues.We agreed tocontinue narcotic pain medication for pain control.Morro esteves will follow-up in 2 weeks for her routine visit. [id number] Travis Mcdowell MD [facility] [address] [address] 05/21/2020 11:53:33 05/21/2020 13:03:57 care [id number] Z39.2 [id number] Travis Mcdowell MD [facility] [address] [address] 08/10/2020 14:19:51 08/10/2020 15:15:29 Mixed anxiety and depressive disorder [id number] F41.8 this patient is a 25-year-ol d multiparou s female who presents for follow-up on anxiety and depression . She has a primary care provider who is prescribin g her meds. She is on venlafaxin e and lamotrigin e. She is believed to be bipolar. She is going to discontinu e her contracept ion. Her significan t other is getting a vasectomy. She is interested in some psychiatri c care. She is having trouble with her insurance getting into a psychiatri st. Her E PDS depression score is down. She feels like she is doing well. She has some marked agitation at times. Spent 15 minutes face-to-fa ce. More than 50% was counseling . We are going to help her with locating a counselor. We may help her find a psychiatri st. Health Concerns Section Related Observation LastModified by Organization Detai ls LastModified Time None Recorded Concern Status LastModified by Organization Details LastModified Time None Recorded Advance Directives Directive None Recorded Payers Insurance Date Sequence Insurance Name Policy Number Policy Snell Covered Member ID Snell Member ID Guarantor Name 03/03/2025 1 [facility] - DOS PRIOR TO 2021 (MEDICAID REPLACEMENT - HMO) Diana Marie [id number] 03/15/2025 1 [facility] ON OR AFTER 04/29/21 (MEDICAID REPLACEMENT - HMO) Diana Marie [id number] Notes Date Note Type Note Provider Name and Address Organization Details Recorded Time 04/14/2020 text/html Generic HPI TemplateReported by Patient S Zaki monaoc [facility] 04/14/2020 10:02:10 05/01/2020 text/html This patient is a 24-year-old female who presents for -induced hypertension follow-up. She is got elevated blood pressure today. We agreed to start antihypertensive. She will check her blood pressures at home as she has been doing. She has been getting 140s over 100s at home. She has the same today. We will start 200 of labetalol. Travis Mcdowell MD [address], [place], [address], [facility] 05/01/2020 10:57:52 05/08/2020 text/html Patient is a 24-year-old female presents for postop follow-up. She is one-week postop from a delivery. She has noticed some mood changes since the of her child. She suddenly started having some sadness and crying episodes. She already has established psychiatric diagnoses. She is on medication for depression and mood concerns. We discussed treatment options. We agreed to observe this issue. She will contact us if this issue worsens. Her incision was examined. Her incision is clean dry and intact. She does still have some pain issues. We agreed to continue narcotic pain medication for pain control. She will follow-up in 2 weeks for her routine visit. Travis Mcdowell MD [address], [place], [address], [facility] 05/08/2020 16:09:12 05/21/2020 text/html VisitReported by Patient Travis Mcdowell MD [address], [place], [address], [facility] 05/21/2020 13:02:13 08/10/2020 text/html this patient is a 25-year-old multiparous female who presents for follow-up on anxiety and depression. She has a primary care provider who is prescribing her meds. She is on venlafaxine and lamotrigine. She is believed to be bipolar. She is going to discontinue her contraception. Her significant other is getting a vasectomy. She is interested in some psychiatric care. She is having trouble with her insurance getting into a psychiatrist. Her E PDS depression score is down. She feels like she is doing well. She has some marked agitation at times. Spent 15 minutes [id number]. More than 50% was counseling. We are going to help her with locating a counselor. We may help her find a psychiatrist. Travis Mcdowell MD [address], [place], [address], [facility] 08/10/2020 14:52:25 OBGyn Episode Ob Episode Information Episode Created Date Number of Fetuses Patient Bloodtype Patient rh Status Prepregnancy Weight lbs Domestic Partner Domestic Partner Phone Father Name Batch Maker Status 02/25/20 20 1 A Positive 100 CLOSED Fetus Data First Name Last Name Admitted to NICU Weight (g) Sex Living Outcome Pediatric Complications Fetus ID Race Codes Race Delivery Type Lori 2381.35 8 F true Full Term breech 910 Primary Problems Problem Notes Problem Name Start Date End Date Resolution Snomed Code Not e Past medication [id number] [facility] - hx lamictal & xanax in and growth restriction -rpt u/s & OV 04/01/20 at 3:15pm[facility]M discontinued xanax started on lamotrigine, vistaril with effexor - U/S [id number]. See consult notes! Juan Miguel Calculation Initial Juan Miguel Date Initial Exam Date Initial Exam Provider Initial Ultrasound Date Last Menstrual Period Date Ultra Sound Weeks Gestation 05/10/2020 02/25/2020 10/01/2019 8 Eighteen To Twenty Week Juan Miguel Update Ultra Sound Date Fundal Height At Umbil Quickening Date Ultra Sound Latest Weeks Gestation Final Juan Miguel Confirmed By Final Juan Miguel Confirmed Date Final Juan Miguel Date Ultra Sound Latest Days Gestation 0 [email or web address] 03/10/2020 07/12/20 20 0 Pre- Flowsheet Flowsheet Date 02/25/2020 Stiles Score Blood Edema Fundus Height Fundus Units Glucose Ketones Leukocytes Nitrite Labor Signs Protein Cervic Dilation Cervic Effacement Cervic Station 28 1+ Type Weight in lbs Pre/Post Dialysis Refused Weight 142.180785329473 BP Diastolic BP Location Tested BP Systolic BP Type 74 109 Fetus Heart Rate Present A 150 Fetus Movement A Yes Comments Pt doing well. 1 hour gtt to day along with thyroid labs. Recommended TDAP. RTC in 2 weeks. She is having a girl Lori but will call her Luzma Barth Flowsheet Date 03/10/2020 Stiles Score Blood Edema Fundus Height Fundus Units Glucose Ketones Leukocytes Nitrite Labor Signs Protein Cervic Dilation Cervic Effacement Cervic Station 30 Type Weight in lbs Pre/Post Dialysis Refused Weight 145.5113451195 BP Diastolic BP Location Tested BP Systolic BP Type 89 131 sitting Fetus Heart Rate Present A 150 Fetus Movement A Yes Comments Pt getting TDAP this week. W ill call to schedule pre-admit. Labor precautions discussed. Follow up u/s with [facility] tomorrow. Flowsheet Date 04/02/2020 Stiles Score Blood Edema Fundus Height Fundus Units Glucose Ketones Leukocytes Nitrite Labor Signs Protein Cervic Dilation Cervic Effacement Cervic Station 34 trace Type Weight in lbs Pre/Post Dialysis Refused Weight 157.051444159793 BP Diastolic BP Location Tested BP Systolic BP Type 83 121 Fetus Heart Rate Present A 138 Fetus Movement A Yes Comments Pt doing well. Saw MFM yeste rday. They recommend growth u/s in 3 weeks. Urine and culture collected today per mfm request. Flowsheet Date 11/01/2019 Stiles Score Blood Edema Fundus Height Fundus Units Glucose Ketones Leukocytes Nitrite Labor Signs Protein Cervic Dilation Cervic Effacement Cervic Station trace 12 trace Type Weight in lbs Pre/Post Dialysis Refused Weight 111.357863926287 BP Diastolic BP Location Tested BP Systolic BP Type 72 112 sitting Fetus Heart Rate Present A 161 Fetus Movement A No Comments This patient is a 24-year-ol d 1 at 12 weeks gestation who has tapered herself off of Xanax in the 1st trimester. She is going to see MFM shortly for Xanax and affects her exposure in the 1st trimester. She has no complaints today. Flowsheet Date 11/29/2019 Stiles Score Blood Edema Fundus Height Fundus Units Glucose Ketones Leukocytes Nitrite Labor Signs Protein Cervic Dilation Cervic Effacement Cervic Station trace Type Weight in lbs Pre/Post Dialysis Refused Weight 119.877682260893 BP Diastolic BP Location Tested BP Systolic BP Type 73 106 sitting Fetus Heart Rate Present A 154 Fetus Movement A No Comments OB [id number] pt states that sauceda ving nausea and vomiting, discharge and was treated for UTI in hospital Flowsheet Date 12/30/2019 Stiles Score Blood Edema Fundus Height Fundus Units Glucose Ketones Leukocytes Nitrite Labor Signs Protein Cervic Dilation Cervic Effacement Cervic Station 1+ 21 Type Weight in lbs Pre/Post Dialysis Refused Weight 127.528610707287 BP Diastolic BP Location Tested BP Systolic BP Type 75 111 sitting Fetus Heart Rate Present A 144 Fetus Movement Comments Flowsheet Date 01/24/2020 Stiles Score Blood Edema Fundus Height Fundus Units Glucose Ketones Leukocytes Nitrite Labor Signs Protein Cervic Dilation Cervic Effacement Cervic Station none 26 trace Type Weight in lbs Pre/Post Dialysis Refused Weight 135.29143737859 BP Diastolic BP Location Tested BP Systolic BP Type 74 123 sitting Fetus Heart Rate Present A 155 Fetus Movement A Yes Comments No complaints. Expecting bab y girl Mragarita plans to breastfeed. Advised TdaP vaccine between 28-32 weeks Flowsheet Date 04/14/2020 Stiles Score Blood Edema Fundus Height Fundus Units Glucose Ketones Leukocytes Nitrite Labor Signs Protein Cervic Dilation Cervic Effacement Cervic Station trace 37 cm 0cm 30% -2 Type Weight in lbs Pre/Post Dialysis Refused Weight 167.081592416319 BP Diastolic BP Location Tested BP Systolic BP Type 89 R arm 134 sitting Fetus Heart Rate Present A 125 Fetus Movement A Yes Comments Pt. will leave urine sample after visit. bc, rma Breech on U/S earlier this month, has repeat U/S with MFM next week. She's undecided if she'd want to try version or schedule C/S if baby doesn't turn. GBS done. Cervix FT/soft/mid. Labor precautions reviewed Flowsheet Date 05/01/2020 Stiles Score Blood Edema Fundus Height Fundus Units Glucose Ketones Leukocytes Nitrite Labor Signs Protein Cervic Dilation Cervic Effacement Cervic Station Type Weight in lbs Pre/Post Dialysis Refused Weight 153.237662749729 BP Diastolic BP Location Tested BP Systolic BP Type 107 142 Fetus Heart Rate Present Fetus Movement Comments Flowsheet Date 05/08/2020 Stiles Score Blood Edema Fundus Height Fundus Units Glucose Ketones Leukocytes Nitrite Labor Signs Protein Cervic Dilation Cervic Effacement Cervic Station Type Weight in lbs Pre/Post Dialysis Refused Weight 148.940310349669 BP Diastolic BP Location Tested BP Systolic BP Type 86 122 Fetus Heart Rate Present Fetus Movement Comments Flowsheet Date 05/21/2020 Stiles Score Blood Edema Fundus Height Fundus Units Glucose Ketones Leukocytes Nitrite Labor Signs Protein Cervic Dilation Cervic Effacement Cervic Station Type Weight in lbs Pre/Post Dialysis Refused Weight 142.430344046312 BP Diastolic BP Location Tested BP Systolic BP Type 85 117 Fetus Heart Rate Present Fetus Movement Comments Menstrual History Last Menstrual Date Menses Monthly On Bcp Conception Prior Menses Frequency Hcg Plus Date Menarche Onset Age Genetic Screening And Infection History Question Response Note Mental Retardation/Autism false Patient's Age Will Be 35 Yea rs Or Older At Estimated Date of Delivery false Thalassemia (Zambian, Romanian, Mediterranean, Or Background): MCV < 80 false Neural Tube Defect (Meningom yelocele, Spina Bifida, Or Anencephaly) false Congenital Heart Defect false Down Syndrome false Brennan-Sachs (eg, Samaritan, Cajun , Austrian-Ugandan) false Avelina Disease false Sickle Cell Disease Or Trait () false Hemophilia Or Other Blood Disorders false Muscular Dystrophy false Cystic Fibrosis false Newton's Chorea false Intellectual Disability/Autism false If Yes, Was Person Tested For Fragile X? false Other Inherited Genetic Or C hromosomal Disorder false Maternal Metabolic Disorder (eg, Type 1 Diabetes, PKU) false Patient Or Baby's Father Had A Child With Defects Not Listed Above false Recurrent Loss, Or A Stillbirth false Medications (including Suppl ements, Vitamins, Herbs, OTC Drugs), Illicit/Recreational Drugs, Alcohol true xanax and lamictal early in If Yes, Agent(s) And Strength/Dosage false Any Other Genetic History false Live With Someone With TB Or Exposed To TB false Patient Or Partner Has Histo ry Of Genital Herpes false Rash Or Viral Illness Since Last Menstrual Period false History Of STD, Gonorrhea, C hlamydia, HPV, Syphilis false Other Infection History false History of HIV false History of Hepatitis false Prior GBS-infected child false Hemoglobinopathy Or Carrier false Other Structural Defect false Recent Travel History Outside of Country false Delivery Information Delivery Date Delivery Type Labor Anesthesia Weeks Gestation Incision Type Labor Labor Length Hrs Delivered By Post Complications Tubal Sterilization Discharge Date Comments 0 None Regional-Sp inal 37.4 Low Transvers e [id number] None false GHTNPatie nt notes bleeding has stopped. She was given instructi ons on oral contracep tive pills. She is going to be given a electroni c prescript ion. She has not had intercour se. Discharge Information Feeding Method Contraceptive Method Maternal HG B and HCT Levels Bottle Ocp's Ob Episode Information Episode Created Date Number of Fetuses Patient Bloodtype Patient rh Status Prepregnancy Weight lbs Domestic Partner Domestic Partner Phone Father Name Batch Maker Status 05/01/20 20 1 DELETED Juan Miguel Calculation Initial Juan Miguel Date Initial Exam Date Initial Exam Provider Initial Ultrasound Date Last Menstrual Period Date Ultra Sound Weeks Gestation 0 Eighteen To Twenty Week Juan Miguel Update Ultra Sound Date Fundal Height At Umbil Quickening Date Ultra Sound Latest Weeks Gestation Final Juan Miguel Confirmed By Final Juan Miguel Confirmed Date Final Juan Miguel Date Ultra Sound Latest Days Gestation 0 0 Menstrual History Last Menstrual Date Menses Monthly On Bcp Conception Prior Menses Frequency Hcg Plus Date Menarche Onset Age Delivery Information Delivery Date Delivery Type Labor Anesthesia Weeks Gestation Incision Type Labor Labor Length Hrs Delivered By Post Complications Tubal Sterilization Discharge Date Comments 0 37 HTN Discharge Information Feeding Method Contraceptive Method Maternal HG B and HCT Levels
--- OUTSIDE RECORDS SUMMARY | 2025-08-09 16:47 | XMS_ITS | Clinical Summary ---
Author Organization [facility] Address [address] [facility] [place] [address] Care Team Providers Care Government Relations Manager Name Role Phone Unavailable Primary Care Provider Unavailabl e Source Comments [facility], formerly [facility],non-owned Affiliates and Associated Physician Practices is amultiple site organization consisting of ambulatory clinics and hospital sitesin [place], [place], [place] and [place]. This disclosure is being madepursuant to the Care Everywhere program and may not contain all information available regarding this patient. Last updated 18.[facility] Allergies No known active allergies Medications * [...] blood pressure 121/80. Benign physical exam today. [facility] Plan: 1. Macrobid sent to pharmacy given [...] far! Assessment & Plan (12/25/2019 3:40 PM GEOTHERMAL OPERATING ENGINEER): Has cut down on smoking. Offered nicotine [...] supplementation. Assessment & Plan (12/25/2019 3:41 PM GEOTHERMAL OPERATING ENGINEER): Maternal Medicine recommendations: 1. Prescribed riboflavin for [...] continues to have occasional craving for alprazolam [facility] recommendations: 1. Praised her cessation of alprazolam use; reminded of risk of withdrawal if she were to resume taking alprazolam. Diana verbalized understanding. 2. Continue hydroxyzine as needed for anxiety. Assessment & Plan (12/25/2019 3:40 PM GEOTHERMAL OPERATING ENGINEER): Has discontinued Xanax. Using venlafaxine. Anxiety decreased. Remains at risk for mood deterioration. Maternal Medicine recommendations: 1. Would benefit from establishing care with a mental health provider Assessment & Plan (11/06/2019 6:13 PM GEOTHERMAL OPERATING ENGINEER): Currently on BuSpar and Effexor. Does not [...] for excessive sedation and adequate weight gain. [email or web address] Maternal Medicine recommendations : 1. Consultation with a clinical pharmacist--referral initiated 2. Reestablish care with psychiatrist and mental health counselor 3. IF Effexor is continued into the 3rd trimester, I recommend communication of maternal use of this medication to canvas cutter machine any increased per vision of the within [...] weeks due to venlafaxine use. 6. Notify canvas cutter machine of maternal medication use. 7. Recommend additional [...] weeks due to venlafaxine use. 5. Notify canvas cutter machine of maternal medication use. 6. Recommend additional [...] weeks due to venlafaxine use 6. Notify canvas cutter machine of maternal medication use 7. Recommend additional supervision of within the 1st 48 hr of life to monitor for adverse medication effects 8. supported and encouraged Assessment & Plan (12/25/2019 3:49 PM GEOTHERMAL OPERATING ENGINEER): Restarted Lamictal--currently on titration schedule. Also using [...] weeks due to venlafaxine use 7. notify canvas cutter machine of maternal medication use 8. recommend additional supervision of within the 1st 48 hr of life to monitor for adverse medication effects 9. supported Assessment & Plan (11/06/2019 6:13 PM GEOTHERMAL OPERATING ENGINEER): Currently on BuSpar and Effexor. Denies any [...] on file Legal Sex Female 5:38 AM GEOTHERMAL OPERATING ENGINEER Gender Identity Not on file Sexual Orientation [...] Body Mass Index 28.82 12/25/2019 2:47 PM GEOTHERMAL OPERATING ENGINEER Plan of Treatment Health Maintenance Due Date [...] Documents on File Type Date Recorded Patient Weed Inspector Expl anation Adv Directive/Living Will/POA 06/18/2012 3:55 PM
[2025-08-09 16:51] VITALS: BP 120/79; PULSE 99; RESP 18; TEMP 36.5; O2SAT 100
--- NOTE | 2025-08-09 16:59 | ED_ITS ---
HPI - Nausea/Vomiting/Diarrhea General Chief complaint: Nausea/Vomiting/Diarrhea Stated complaint: n/v/d Time Seen by Provider: 08/09/25 16:59 Source: patient and RN notes reviewed Mode of arrival: ambulatory Limitations: no limitations History of Present Illness HPI Narrative: 30 y/o female presented for c/o right flank pain, urinary frequency, n/v/d and subjective fever. Onset 2 weeks. Endorses associated decreased appetite and intermittent abdominal cramping. Reports dark colored urine which is improving as well as increased urine output. Last emesis was 2 days ago. Endorses history of IBS-D, so she says she is not sure if diarrhea is related. Pt stopped mirtazapine 'cold turkey' 2 weeks ago. LMP 05/2025 endorses no menses in June. Related Data Home Medications ?Medication ?Instructions ?Recorded ?Confirmed ?Last Taken ?Type alprazolam 0.5 mg tablet 0.5 mg PO TID 03/01/2207/22 Unknown History Allergies Allergy/AdvReac Type Severity Reaction Status Date / Time No Known Allergies Allergy Unknown Verified 08/09/25 16:51 Review of Systems Review of Systems: CONSTITUTIONAL: Denies body aches, reports fever, chills ENT: Denies rhinorrhea, congestion CARDIOVASCULAR: Denies chest pain, palpitations, or edema. RESPIRATORY: Denies cough or dyspnea. GASTROINTESTINAL: Endorses abdominal pain, nausea, vomiting, diarrhea, Denies hematochezia, melena, hematemesis GENITOURINARY: Denies dysuria, reports hematuria, CVA tenderness. SKIN: Denies rash NEUROLOGIC: Denies headache, numbness, tingling, or weakness. All systems reviewed & are unremarkable except as noted in HPI and below PMFSH Past Medical History Medical History Mood disorder Urinary tract infection Anxiety Depression Hx of bipolar disorder Surgical History Surgical History No significant past surgical history Family History Family History Grandparent Diabetes mellitus Carcinoma of colon Hypertension Heart disease Social History Social History Smoking packs per day: 1 Smoking cigarettes per day: 20.0 Years smoked: 4 Smoking pack-years: 4.00 Smoking status: Current some day smoker Tobacco type: cigarettes Additional smoking assessment comments: pt states she only smokes every other day Alcohol intake: former Substance use: never Substance use type: does not use Gender identity (if verbalized by the patient): Female Spiritual care concerns: No Agree to blood products: Yes Comments At time of signature, I have reviewed and agree with nursing past medical, surgical, social and family history unless otherwise noted. Please see nursing chart for further information. There is no relevant family history pertinent to the presenting complaint Exam Narrative: GENERAL: Well-appearing ENT: Mucous membranes pink and moist. CHEST: No respiratory distress. Clear to auscultation. HEART: Regular rate and rhythm. ABDOMEN: abd soft, nondistended, normal active bowel sounds. Right CVA tendern ess with palpation. Nontender abdomen; No guarding, rebound tenderness, asymmetry SKIN: Warm, dry, no rash. Capillary refill normal. Normal skin turgor. NEURO: No focal deficits. Alert and oriented x3. PSYCH: Normal affect. Course Course Emergency Course: Patient is aware of diagnosis, understands and agrees to treatment plan. Anticipatory guidance given. Patient agrees to follow-up as directed and is aware of reasons to seek care at the emergency department. Portions of this record may have been created with voice recognition software Level of Care: Express Care Visit Vital Signs Vital signs: Vital Signs Temperature 97.7 F 08/09/25 16:51 Pulse Rate 99 08/09/25 16:51 Respiratory Rate 18 08/09/25 16:51 Blood Pressure 120/79 08/09/25 16:51 Pulse Oximetry 100 08/09/25 16:51 Oxygen Delivery Room Air 08/09/25 16:51 Temperature 97.7 F 08/09/25 16:51 Pulse Rate 99 08/09/25 16:51 Respiratory Rate 18 08/09/25 16:51 Blood Pressure 120/79 08/09/25 16:51 Pulse Oximetry 100 08/09/25 16:51 Oxygen Delivery Room Air 08/09/25 16:51 MDM - Nausea/Vomiting/Diarrhea MDM Narrative Medical decision making narrative: Pt presented with right flank pain, n/v, pos UTI; discussed physical exam findings most c/w pyelonephritis. Pt is appropriate to try outpt treatment. Reviewed Rx abx and ondansetron. Discussed possibility of renal stone and need for close f/u. Advised supportive measures and signs/symptoms to go to the ER. Pt is appropriate for outpt treatment and f/u. Differential Diagnosis Differential diagnosis: Likely gastroenteritis, dehydration and other (pyelonephritis, perinephric abscess, nephrolithiasis, cystitis, diverticulitis, bowel obstruction, ectopic pregnancyrenal artery embolism, aortic dissection) Discharge Plan Discharge Clinical Impression: Urinary tract infection Qualifiers: Urinary tract infection type: site unspecified Hematuria presence: without hematuria Qualified Code(s): N39.0 - Urinary tract infection, site not specified Patient Disposition: Home Condition: Stable Instructions: Antibiotic Form, Kidney Infection (ED) Additional Instructions: Take the antibiotic as prescribed The urine will be sent of for a culture to identify what type of bacteria is causing your infection. If the culture shows that the antibiotic will not get rid of your infection, you will be notified and a new antibiotic will be called in for you. Increase water intake Ondansetron as needed for nausea you will need to follow up with your PCP within 48 hours, call to schedule an appointment. Go to the ER if no improvement after 48 hours, or for any worsening symptoms or concerns during treatment Patient Language: Micronesian Prescriptions: New ciprofloxacin HCl [Cipro] 500 mg tablet 500 mg PO Q12H 7 Days Qty: 14 0RF ondansetron 4 mg tablet,disintegrating 4 mg PO Q8H PRN (Reason: nausea and vomiting) Qty: 15 0RF No Action alprazolam 0.5 mg tablet 0.5 mg PO TID venlafaxine 150 mg capsule,extended release 24hr 150 mg PO DAILY Qty: 30 2RF venlafaxine 75 mg capsule,extended release 24hr 75 mg PO DAILY Qty: 30 2RF lamotrigine [Lamictal] 100 mg tablet 200 mg PO DAILY Qty: 60 2RF Follow-up/Referrals: Lydia,ROLAND Youssef [Primary Care Provider, Family Practice] Time of Disposition: 17:25
[2025-08-09 17:08] LABS: BEDSIDEPREGUCG Negative (Negative)
[2025-08-09 17:10] LABS: EDUAAPPEAR Cloudy; EDUABILI Negative (Negative); EDUABLOOD 2+ (Negative); EDUACOLOR1 Yellow; EDUAGLUCOSE Negative (Negative); EDUAKETONE Negative (Negative); EDUALEUKO 3+ (Negative); EDUANITRATE Positive (Negative); EDUAPH 5.5; EDUAPROTEIN 2+ (Negative); EDUASPGRAVITY 1.020; EDUAUROBILI 0.2
== END 2025-08-09 17:27 | disposition home or self-care (01) ==
PROVIDERS: Emergency Provider Nurse Practitioner Family; PCP Physician Assistant
DX: N39.0 Urinary tract infection, site not specified (principal); F17.210 Nicotine dependence, cigarettes, uncomplicated; F41.9 Anxiety disorder, unspecified; F31.9 Bipolar disorder, unspecified
CPT/HCPCS: 81003; 81025; 87077; 87086; 87186; 99213; G0463

== ENCOUNTER 2025-09-22 13:35 | Emergency (ER) | payer OTHER, SELFPAY ==
[2025-09-22 13:42] VITALS: BP 110/76; PULSE 103; RESP 18; TEMP 36.9; O2SAT 100
[2025-09-22 14:44] LABS: EDSTREPNEGPOS1 Positive (Negative)
--- NOTE | 2025-09-22 14:53 | ED_ITS ---
HPI - URI/Sore Throat General Chief Complaint: Upper Respiratory Infection Stated Complaint: sore throat Time Seen by Provider: 09/22/25 14:47 Source: patient and RN notes reviewed Mode of arrival: ambulatory Limitations: no limitations History of Present Illness HPI Narrative: 40-year-old female patient presents today with a 2 day history of sore throat, bilateral ear pain, rhinorrhea, nausea, fatigue. She has been taking Tylenol and cold medication with mild improvement and currently rates her pain 6/10. Throat pain increases with swallowing. Related Data Home Medications ?Medication ?Instructions ?Recorded ?Confirmed ?Last Taken ?Type alprazolam 0.5 mg tablet 0.5 mg PO TID 03/01/2207/22 Unknown History Allergies Allergy/AdvReac Type Severity Reaction Status Date / Time No Known Allergies Allergy Unknown Verified 09/22/25 13:52 PMFSH Past Medical History Medical History Mood disorder Urinary tract infection Anxiety Depression Hx of bipolar disorder Surgical History Surgical History No significant past surgical history Family History Family History Grandparent Diabetes mellitus Carcinoma of colon Hypertension Heart disease Social History Social History Smoking packs per day: 1 Smoking cigarettes per day: 20.0 Years smoked: 4 Smoking pack-years: 4.00 Smoking status: Current some day smoker Tobacco type: cigarettes Additional smoking assessment comments: pt states she only smokes every other day Alcohol intake: former Substance use: never Substance use type: does not use Gender identity (if verbalized by the patient): Female Spiritual care concerns: No Agree to blood products: Yes Comments At time of signature, I have reviewed and agree with nursing past medical, surgical, social and family history unless otherwise noted. Please see nursing chart for further information. There is no relevant family history pertinent to the presenting complaint Exam Narrative: GENERAL: Mildly ill-appearing, well-nourished, and in no acute distress. HEAD: Normocephalic, atraumatic. EYES: EOMI. No redness or drainage. Conjunctivae normal. ENT: Mucous membranes pink and moist. Nares clear. No rhinorrhea. TMs normal bilaterally. Throat erythematous. Tonsils 3+ without exudate. Uvula midline. NECK: Normal AROM. Supple. No lymphadenopathy. CHEST: No respiratory distress. Clear to auscultation. HEART: Regular rate and rhythm. No murmur appreciated. EXTREMITIES: Normal range of motion. No edema. SKIN: Warm, dry, no rash. Capillary refill normal. Normal skin turgor. NEURO: No focal deficits. Alert and oriented x3. Gait steady. PSYCH: Normal affect. No signs of depression or anxiety. Course Course Level of Care: Express Care Visit Vital Signs Vital signs: Vital Signs Temperature 98.4 F 09/22/25 13:42 Pulse Rate 103 H 09/22/25 13:42 Respiratory Rate 18 09/22/25 13:42 Blood Pressure 110/76 09/22/25 13:42 Pulse Oximetry 100 09/22/25 13:42 Oxygen Delivery Room Air 09/22/25 13:42 Temperature 98.4 F 09/22/25 13:42 Pulse Rate 103 H 09/22/25 13:42 Respiratory Rate 18 09/22/25 13:42 Blood Pressure 110/76 09/22/25 13:42 Pulse Oximetry 100 09/22/25 13:42 Oxygen Delivery Room Air 09/22/25 13:42 S reviewed MDM - URI/Sore Throat MDM Narrative Medical decision making narrative: 40-year-old female patient presents today with a 2 day history of sore throat, bilateral ear pain, rhinorrhea, nausea, fatigue. She has been taking Tylenol and cold medication with mild improvement and currently rates her pain 6/10. Throat pain increases with swallowing. Upon exam, patient is mildly ill appearing with an erythematous and edematous throat. Rapid strep positive. Patient was recently on Cipro and Augmentin for UTI and pilonidal abscess respectively. It has been over 2 months that she was on the Augmentin. Will place her on amoxicillin today. Patient agrees with plan. Vital signs stable. Anticipatory guidance given. Differential Diagnosis Differential diagnosis: Likely upper respiratory infection, otitis media, viral infection, pharyngitis and other (Strep throat) Lab Data Attestation: I reviewed the patient's lab results. Labs: Lab Results 09/22/25 Range/Units 14:42 POC Grp A Strep Screen Positive (Negative) Critical Care Time Critical Care Time Critical Care Time: No Discharge Plan Discharge Clinical Impression: Strep throat Patient Disposition: Home Condition: Stable Instructions: Antibiotic Form, Strep Throat (DC) Additional Instructions: You tested positive for strep throat. Please take the amoxicillin as prescribed until gone. You will be contagious for 24 hours after starting the medication. Take Tylenol or Ibuprofen for pain or fever, if able. Rest and stay hydrated. Follow up with your PCP in 3 days if symptoms are not improving. Go to the ER immediately if you develop worsening symptoms such as shortness of breath, difficulty swallowing. Patient Language: Spanish Prescriptions: New amoxicillin 875 mg tablet 875 mg PO Q12H 10 Days Qty: 20 0RF No Action alprazolam 0.5 mg tablet 0.5 mg PO TID venlafaxine 150 mg capsule,extended release 24hr 150 mg PO DAILY Qty: 30 2RF venlafaxine 75 mg capsule,extended release 24hr 75 mg PO DAILY Qty: 30 2RF lamotrigine [Lamictal] 100 mg tablet 200 mg PO DAILY Qty: 60 2RF Follow-up/Referrals: Lydia,ROLAND Youssef [Primary Care Provider, Family Practice] Stand Alone Forms: Work/School Release IP Time of Disposition: 14:57
== END 2025-09-22 15:02 | disposition home or self-care (01) ==
PROVIDERS: Emergency Provider Nurse Practitioner; PCP Physician Assistant
DX: J02.0 Streptococcal pharyngitis (principal); F17.210 Nicotine dependence, cigarettes, uncomplicated; F41.9 Anxiety disorder, unspecified; F31.9 Bipolar disorder, unspecified
CPT/HCPCS: 87880; 99213; G0463

== ENCOUNTER 2025-10-15 17:27 | Emergency (ER) | payer OTHER, SELFPAY ==
[2025-10-15 17:39] VITALS: BP 141/87; PULSE 104; RESP 18; TEMP 36.6; O2SAT 100
[2025-10-15 18:02] LABS: EDSTREPNEGPOS1 Positive (Negative)
[2025-10-15 18:02] LABS: EDCOVIDSCREEN Negative (Negative); EDINFLUASCREEN Negative (Negative); EDINFLUBSCREEN Negative (Negative)
--- NOTE | 2025-10-15 18:04 | ED.URI ---
HPI - URI/Sore Throat General Chief Complaint: Upper Respiratory Infection Stated Complaint: Strep Time Seen by Provider: 10/15/25 17:45 Source: patient and RN notes reviewed Mode of arrival: ambulatory Limitations: no limitations History of Present Illness HPI Narrative: 30-year-old female presents Express Care complaining of upper respiratory symptoms for approximately 4 days. Patient reports cough, congestion, sore throat, tender lymph nodes, nausea, and fevers and body aches. Patient denies any other upper respiratory symptoms, chills, sweats, abdominal pain, chest pain, difficulty breathing, or any other symptoms. Patient recently was treated for strep back in August. Patient said she completed the antibiotics and felt completely better afterwards. Patient reports a history of bipolar disorder and anxiety. Related Data Home Medications ?Medication ?Instructions ?Recorded ?Confirmed ?Last Taken ?Type alprazolam 0.5 mg tablet 0.5 mg PO TID 03/01/22 07/22/22 Unknown History Allergies Allergy/AdvReac Type Severity Reaction Status Date / Time No Known Allergies Allergy Unknown Verified 10/15/25 17:29 Review of Systems Review of Systems: CONSTITUTIONAL: Positive for fevers and body aches. Negative for chills, or sweats. EYES: Denies visual changes, redness, or discharge. ENT: Positive for congestion, sore throat. Negative for rhinorrhea or otalgia. CARDIOVASCULAR: Denies chest pain, palpitations, or edema. RESPIRATORY: Positive for cough. Negative for wheezing or Dyspnea. GASTROINTESTINAL: Denies abdominal pain, nausea, vomiting, or diarrhea. GENITOURINARY: Denies dysuria or hematuria. SKIN: Denies rash or itching. MUSCULOSKELETAL: Denies back pain, joint pain, or myalgia. NEUROLOGIC: Denies headache, numbness, or weakness. PSYCHIATRIC: Denies anxiety or depression. All other systems reviewed are negative, except as documented in HPI. [facility] Past Medical History Medical History Mood disorder Urinary tract infection Anxiety Depression Hx of bipolar disorder Surgical History Surgical History No significant past surgical history Family History Family History Grandparent Diabetes mellitus Carcinoma of colon Hypertension Heart disease Social History Social History Smoking packs per day: 1 Smoking cigarettes per day: 20.0 Years smoked: 4 Smoking pack-years: 4.00 Smoking status: Current some day smoker Tobacco type: cigarettes Additional smoking assessment comments: pt states she only smokes every other day Alcohol intake: former Substance use: never Substance use type: does not use Gender identity (if verbalized by the patient): Female Spiritual care concerns: No Agree to blood products: Yes Comments At the time of my signature, I reviewed and agree with the nursing past medical, surgical, social, and family history. There is no relevant family history pertinent to the patient complaint. Exam Narrative: GENERAL: This is a well-nourished, well-developed adult, in no apparent distress. They are non ill-appearing, nontoxic appearing. HEAD: normocephalic, atraumatic. EYES: Sclera clear/white. Conjunctiva normal. Vision is grossly intact. Extraocular movements intact EARS: External ears normal, auditory canals clear and without drainage, TMs normal without perforation. Hearing grossly intact. NOSE: External nose normal with no obvious nasal discharge, nasal turbinates erythema no swelling, no rhinorrhea. THROAT: Mucous membranes moist, posterior pharynx erythematous red and patchy. Uvula midline. NECK: Neck supple, tender cervical lymphadenopathy, no masses or thyromegaly. CARDIOVASCULAR: Regular rate and rhythm without murmurs, gallops, or rubs. RESPIRATORY: Clear to auscultation. Breath sounds equal bilaterally. No wheezes, rales, or rhonchi. SKIN: warm, Dry, intact with no suspicious lesions or rash, good texture and turgor. NEURO: awake, alert, and oriented to person, place and time. There were no obvious focal neurologic abnormalities. EXTREMITIES: No joint tenderness, effusion, or edema noted. BACK: Nontender without deformity. Course Course Level of Care: Express Care Visit Vital Signs Vital signs: Vital Signs Temperature 97.9 F 10/15/25 17:39 Pulse Rate 104 H 10/15/25 17:39 Respiratory Rate 18 10/15/25 17:39 Blood Pressure 141/87 H 10/15/25 17:39 Pulse Oximetry 100 10/15/25 17:39 Oxygen Delivery Room Air 10/15/25 17:39 Temperature 97.9 F 10/15/25 17:39 Pulse Rate 104 H 10/15/25 17:39 Respiratory Rate 18 10/15/25 17:39 Blood Pressure 141/87 H 10/15/25 17:39 Pulse Oximetry 100 10/15/25 17:39 Oxygen Delivery Room Air 10/15/25 17:39 [facility] Narrative Medical decision making narrative: Rapid strep positive. Negative COVID and flu. Patient may also have underlying viral URI. There is clinical evidence of strep pharyngitis. Will treat with Augmentin for 10 days since she was recently on amoxicillin for strep throat. Discussed physical exam findings. Advised supportive measures and signs/symptoms to go to the ER. Pt is appropriate for outpt treatment and f/u. Differential Diagnosis Differential Diagnosis: Differential diagnostic considerations for upper respiratory infection include upper respiratory infection, croup, otitis media, sinusitis, viral infection, bronchitis, influenza, pharyngitis, strep, uvulitis. Lab Data [facility] Lab Attestation statement: I personally reviewed the patient's lab results. Labs: Lab Results 10/15/25 10/15/25 Range/Units 17:42 17:48 POC Influenza A Ag Negative (Negative) POC Influenza B Ag Negative (Negative) POC SARS CoV-2 Ag Negative (Negative) POC Grp A Strep Screen Positive (Negative) Critical Care Time Critical Care Time Critical Care Time: No Discharge Plan Discharge Clinical Impression: Pharyngitis Qualifiers: Pharyngitis/tonsillitis etiology: streptococcus Qualified Code(s): J02.0 - Streptococcal pharyngitis Patient Disposition: Home Condition: Stable Instructions: Antibiotic Form, Strep Throat (ED) Additional Instructions: You tested positive for strep throat. ?Please take the Augmentin as prescribed until gone. ?You will be contagious for 24 hours after starting the medication. ?After 24 hours on antibiotics throw tooth brush away and start using a new one. Wash your sheets and cup/water bottle that is used daily. Do not share drinks. Take Tylenol or Ibuprofen as needed for pain or fever, follow instructions on the bottle. ?Rest and stay hydrated. ?Follow up with your PCP in 3 to 5 days if symptoms are not improving. ?Go to the ER immediately if you develop worsening symptoms such as shortness of breath, chest pain, vomiting, difficulty swallowing, or any serious concerns.. ? Patient Language: Uzbek Prescriptions: New amoxicillin-pot clavulanate 875-125 mg tablet 1 tablet PO Q12H 10 Days Qty: 20 0RF No Action alprazolam 0.5 mg tablet 0.5 mg PO TID venlafaxine 150 mg capsule,extended release 24hr 150 mg PO DAILY Qty: 30 2RF venlafaxine 75 mg capsule,extended release 24hr 75 mg PO DAILY Qty: 30 2RF lamotrigine [Lamictal] 100 mg tablet 200 mg PO DAILY Qty: 60 2RF Follow-up/Referrals: PHYSICIAN,ADVANCED PRACTICE REGISTERED NURSE [Primary Care Provider, Internal Medicine] Stand Alone Forms: Work/School Release IP Time of Disposition: 18:01
--- OUTSIDE RECORDS SUMMARY | 2025-10-15 18:45 | XMS_ITS | Data Portability ---
Author Organization [facility] Address [address] [place] [address] Assessment Encounter Date Assessment Date Assessment LastModified [...] (21)/75 mg (7) tablet 2019 020 INTERFACE [facility][id number], [address], [place], [id number], 0 13:01:01 Loestrin Fe 1.5/30 (28-Day) 1.5 mg-30 mcg (21)/75 mg (7) tablet 2019 020 [email or web address] [facility] #36910, [address], [place], [id number], 0 14:29:56 Larwill 5 mg-325 mg tablet 2019 020 [email or web address] [facility] #43602, [address], [place], [id number], 0 14:30:04 labetalol 200 mg tablet 2019 020 [email or web address] [facility] #10407, [address], [place], [place], [id number], 0 14:30:08 Patient TargetsNo targets recorded. Patient InstructionsNo instructions recorded. Reason for Referral None Reported. Results Created Date Observation Date Name Description Value Unit Range Abnormal Flag Note LastModifiedBy Organization Detail LastModifiedTime 04/02/20 20 04/04/2020 cultu re, urine specimen source Urine - Void Not Available [facility] ([facility] [address] [place] [address] Dr Do, [place], [address], 04/04/2020 22:56:28 04/02/20 20 04/04/2020 cultu re, [...] on is recom macrina d. Not Available [facility] ([facility]) [address] [place] [address] Dr Do, [place], [address], 04/04/2020 22:56:28 04/02/20 20 04/04/2020 urina lysis compl ete, refle x cultu re urine type Voided Not Available [facility] ([facility]) [address] [place] [address] Dr Do, [place], [address], 04/05/2020 04:07:09 04/02/20 20 04/04/2020 urina lysis compl ete, refle x cultu re urine color DK YELLOW yellow Not Available [facility]) [address] [place] [address] Dr Do, [place], [address], 04/05/2020 04:07:09 04/02/20 20 04/04/2020 urina lysis compl ete, refle x cultu re urine appearance CLOUDY clear abnormal Not Available [facility] [address] [place] [address] Dr Do, [place], [address], 04/05/2020 04:07:09 04/02/20 20 04/04/2020 urina lysis compl ete, refle x cultu re urine specific gravity 1.024 1.005- 1.030 Not Available [facility] ([facility]) [address] [place] [address] Dr Do, [place], [address], 04/05/2020 04:07:09 04/02/20 20 04/04/2020 urina lysis compl ete, refle x cultu re urine pH 7.0 5.0-9. 0 Not Available [facility] ([facility]) [address] [place] [address] Dr Do, [place], [address], 04/05/2020 04:07:09 04/02/20 20 04/04/2020 urina lysis compl ete, refle x cultu re urine leukocytes esterase TRACE negati ve abnormal Not Available [facility] [address] [place] [address] Dr Do, [place], [address], 04/05/2020 04:07:09 04/02/20 20 04/04/2020 urina lysis compl ete, refle x cultu re urine nitrites NEGATI VE negati ve Not Available [facility] [address] [place] [address] Dr Do, [place], [address], 04/05/2020 04:07:09 04/02/20 20 04/04/2020 urina lysis compl ete, refle x cultu re urine protein TRACE negati ve abnormal Not Available [facility] [address] [place] [address] Dr Do, [place], [address], 04/05/2020 04:07:09 04/02/20 20 04/04/2020 urina lysis compl ete, refle x cultu re urine glucose NEGATI VE negati ve Not Available [facility] [address] [place] [address] Dr Do, [place], [address], 04/05/2020 04:07:09 04/02/20 20 04/04/2020 urina lysis compl ete, refle x cultu re urine ketones NEGATI VE negati ve Not Available [facility] [address] [place] [address] Dr Do, [place], [address], 04/05/2020 04:07:09 04/02/20 20 04/04/2020 urina lysis compl ete, refle x cultu re urine urobilinogen 0.2 E.U./ dL 0.2-1. 0 Not Available [facility] [address] [place] [address] Dr Do, [place], [address], 04/05/2020 04:07:09 04/02/20 20 04/04/2020 urina lysis compl ete, refle x cultu re urine bilirubin NEGATI VE negati ve Not Available [facility]) [address] [place] [address] Dr Do, [place], [address], 04/05/2020 04:07:09 04/02/20 20 04/04/2020 urina lysis compl ete, refle x cultu re urine blood NEGATI VE negati ve Not Available [facility] [address] [place] [address] Dr Do, [place], [address], 04/05/2020 04:07:09 04/02/20 20 04/04/2020 urina lysis , micro scopi c urine WBC 20-50 /hpf 0-2 abnormal Not Available [facility]) [address] [place] [address] Dr Do, [place], [address], 04/05/2020 04:07:10 04/02/20 20 04/04/2020 urina lysis , micro scopi c urine RBC 0-2 /hpf 0-2 Not Available [facility] ([facility]) [address] [place] [address] Dr Do, [place], [address], 04/05/2020 04:07:10 04/02/20 20 04/04/2020 urina lysis , micro scopi c urine epithelial cells 5-10 /hpf 0-2 abnormal Not Available [facility] ([facility]) [address] [place] [address] Dr Do, [place], [address], 04/05/2020 04:07:10 04/02/20 20 04/04/2020 urina lysis , micro scopi c urine bacteria 2+ /hpf none seen abnormal Not Available [facility] ([facility] [address] [place] [address] Dr Do, [place], [address], 04/05/2020 04:07:10 04/02/20 20 04/04/2020 urina lysis , micro scopi c urine casts 2-5 Hyalin e /lpf 0-2 hyalin e abnormal Not Available [facility] ([facility] [address] [place] [address] Dr Do, [place], [address], 04/05/2020 04:07:10 04/02/20 20 04/05/2020 cultu re, urine specimen source Urine Not Available [facility] ([facility]) [address] [place] [address] Dr Do, [place], [address], 04/05/2020 04:07:11 04/02/20 20 04/05/2020 cultu re, urine culture, urine See Below No growt h Not Available [facility] ([facility]) [address], [place], [address], 04/05/2020 04:07:11 04/02/20 20 04/02/2020 urina lysis , dipst ick Leukocytes ++ Not Available [facility] [address], [place], [address], 04/02/2020 17:20:23 04/02/20 20 04/02/2020 urina lysis , dipst ick Nitrite neg Not Available [place] [address], [place], [address], 04/02/2020 17:20:23 04/02/20 20 04/02/2020 urina lysis , dipst ick Urobilinogen normal Not Available [facility] [address], [place], [address], 04/02/2020 17:20:23 04/02/20 20 04/02/2020 urina lysis , dipst ick Protein trace Not Available [place] [address], [place], [address], 04/02/2020 17:20:23 04/02/20 20 04/02/2020 urina lysis , dipst ick pH 8 Not Available [place] [address], [place], [address], 04/02/2020 17:20:23 04/02/20 20 04/02/2020 urina lysis , dipst ick Blood trace Not Available [place] [address], [place], [address], 04/02/2020 17:20:23 04/02/20 20 04/02/2020 urina lysis , dipst ick Ketone neg Not Available [place] [address], [place], [address], 04/02/2020 17:20:23 04/02/20 20 04/02/2020 urina lysis , dipst ick Bilirubin neg Not Available [facility] [address], [place], [address], 04/02/2020 17:20:23 04/02/20 20 04/02/2020 urina lysis , dipst ick Glucose normal Not Available [place] [address], [place], [address], 04/02/2020 17:20:23 04/14/20 20 04/16/2020 strep tococ cus group B DNA GB specimen source Vagina l/Rect al Not Available [facility] [address], [place], [address], 04/16/2020 12:03:56 04/14/20 20 04/16/2020 strep tococ cus group B DNA spec type Cultur e Swab Not Available [facility] ([facility]) [address], [place], [address], 04/16/2020 12:03:56 04/14/20 20 04/16/2020 strep tococ [...] [address], [place] [address] , Marlo Fox ra, DO, Labor atory Direc tor. Not Available [facility] ([facility]) [address], [place], [address], 04/16/2020 12:03:56 04/03/20 20 04/01/2020 US, obste tric, follo w-up No observ ation record ed. [email or web address] [facility] [address] [place] [address], [address], 05/05/2020 17:57:00 04/03/20 20 04/01/2020 US, obste tric, follo w-up No observ ation record ed. [email or web address] [facility] [address] [place] [address], [address], 12/10/2020 17:58:10 04/22/20 20 04/22/2020 US, obste tric, follo w-up No observ ation record ed. [email or web address] [facility] [address] [place] [address], [address], 05/05/2020 17:46:47 04/22/20 20 04/22/2020 US, obste tric, mater nal evalu ation + anato my No observ ation record ed. [email or web address] [facility] [address] [place] [address], [address], 12/13/2020 12:36:44 04/22/20 20 04/22/2020 US, obste tric, mater nal evalu ation + anato my No observ ation record ed. [email or web address] [facility] [address] [place], [address], 12/13/2020 12:37:25 04/23/20 20 04/22/2020 US, obste tric, mater nal evalu ation + anato my No observ ation record ed. [email or web address] [facility] [address] [place], [address], 12/13/2020 12:54:34 Result Notes None recorded. Problems Name Problem SNOMED Code Status Onset Date Resolution Date Notes Provider Name and Address Organization Details Recorded Time Past medicati on 473973128 Completed [facility] - hx lamictal & xanax in pregnanc y and growth restrict ion -rpt u/s & OV 04/01/20 at 3:15pm [facility] disconti nued xanax started on lamotrig ine, vistaril with effexor - U/S [id number]. See consult notes! Gianna Weiss [facility], [facility] 0 14:58:32 Venereal disease screenin g Active 2010 Screenin g examinat ion for venereal disease; Recorded Elsewher e: No Locat ion: [facility] S ource: EHR Retreader sarah: N Murrayti ce ID: 0001 Emanuel lable Time: 09:00:00 AM Not Available [facility] 0 21:12:54 Leukorrh ea 871873860 Active 2010 Leukorrh ea, not specifie d as infectiv e;Record ed Elsewher e: No [facility]: EHR Retreader sarah: N Murrayti ce ID: 0001 Emanuel lable Time: 09:00:00 AM Not Available [facility] 0 21:12:55 Educatio n about sexually transmit stanley disease preventi on Active 2010 Counseli ng on other sexually transmit stanley diseases ;Recorde d Elsewher e: No Locat ion: [facility] S ource: EHR Retreader sarah: N Practi ce ID: 0001 Emanuel lable Time: 09:00:00 AM Not Available [facility] 0 21:12:55 Pregnanc y test negative 631697280 Active 2010 Pregnanc y examinat ion or test, negative result;R ecorded Elsewher e: No Locat ion: Lianetnikhil linn [facility] S ource: EHR Retreader sarah: N Practi ce ID: 0001 Emanuel lable Time: 09:00:00 AM Not Available [facility] 0 21:12:56 Uses oral contrace ption 9819513 Active 2010 Surveill ance of contrace ptive pill;Pra ctice ID: 0001 Not Available [facility] 0 21:12:57 Educatio n Active 2010 Other general counseli ng and advice on contrace ptive manageme nt;Recor ded Elsewher e: No Locat ion: Leslie linn [facility] S ource: EHR Retreader sarah: N Practi ce ID: 0001 Emanuel lable Time: 01:30:00 PM Not Available [facility] 0 21:12:55 Family planning surveill ance Active 2011 Surveill ance of other contrace ptive method;R ecorded Elsewher e: No Locat ion: Seamus esteves [facility] S ource: EHR Retreader sarah: N Practi ce ID: 0001 Emanuel lable Time: 11:00:00 AM Not Available [facility] 0 21:12:56 Ill-defi suraj intestin al infectio n Active 2011 No Show Fee;Prac esther ID: 0001 Not Available [facility] 0 21:12:57 Vaginiti s and vulvovag initis Active 2011 Vaginiti s;Record ed Elsewher e: No Locat ion: [facility] linn [facility] S ource: EHR Retreader sarah: N Practi ce ID: 0001 Emanuel lable Time: 10:30:00 AM Not Available [facility] 0 21:12:56 Urinary tract infectio us disease 81153624 Active 2012 Urinary Tract Infectio n;Record ed Elsewher e: No Locat ion: Seamus esteves [facility] S ource: EHR Retreader sarah: N Murrayti ce ID: 0001 Emanuel lable Time: 01:00:00 PM Not Available [facility] 0 21:12:54 Verruca vulgaris 18482064 Active 2012 Other specifie d viral warts;Re corded Elsewher e: No [facility] S ource: EHR Retreader sarah: N Murrayti ce ID: 0001 Emanuel lable Time: 01:00:00 PM Not Available [facility] 0 21:12:56 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;Re corded Elsewher e: No Locat ion: [facility] linn [facility] S ource: EHR [facility] sarah: N Murrayti ce ID: 0001 Emanuel lable Time: 09:15:00 AM Not Available [facility] 0 21:12:54 Abdomina l pain 82369640 Active 2012 Abdomina l Pain;Rec orded Elsewher e: No Locat ion: [facility] linn [facility] S ource: EHR [facility] sarah: N Murrayti ce ID: 0001 Emanuel lable Time: 09:15:00 AM Not Available [facility] 0 21:12:54 Speciali zed medical examinat ion Active 2012 Gynecolo gical Examinat ion;Faibano rded Elsewher e: No Locat ion: [facility] linn [facility] S ource: EHR Retreader sarah: N Murrayti ce ID: 0001 Emanuel lable Time: 09:15:00 AM Not Available [facility] 0 21:12:55 Amenorrh ea 47446331 Active 2015 Amenorrh ea, unspecif ied;Fabiano rded Elsewher e: No Locat ion: [facility] S ource: EHR [facility] sarah: N Murrayti ce ID: 0001 Emanuel lable Time: 01:30:00 PM Not Available [facility] 0 21:12:[address] Concept Active 2015 Encntr for general adult medical exam w/o abnormal findings ;Recorde d Elsewher e: No Locat ion: Seamus esteves [facility] S ource: EHR Retreader sarah: N Practi ce ID: 0001 Emanuel lable Time: 01:30:00 PM Not Available [facility] 0 21:12:56 Pelvic and perineal pain 973073846 Active 2015 Pelvic and perineal pain;Rec orded Elsewher e: No Locat ion: Leslie linn [facility] S ource: EHR Retreader sarah: N Practi ce ID: 0001 Emanuel lable Time: 02:00:00 PM Not Available [facility] 0 21:12:56 Pregnanc y detectio n examinat ion Active 2018 Encounte r for pregnanc y test, result positive ;Recorde d Elsewher e: No Locat ion: Seamus esteves [facility] S ource: EHR Retreader sarah: N Practi ce ID: 0001 Emanuel lable Time: 01:00:00 PM Not Available [facility] 0 21:12:[address] Concept Active 2018 Encntr for store merchandiser exam (general ) (routine ) w/o abn findings ;Recorde d Elsewher e: No Locat ion: Leslie linn [facility] S ource: EHR Retreader sarah: N Practi ce ID: 0001 Emanuel lable Time: 01:00:00 PM Not Available [facility] 0 21:12:55 Mental disorder Active 2018 Mood disorder ;Recorde d Elsewher e: No Locat ion: Leslie linn [facility] S ource: EHR Retreader sarah: N Practi ce ID: 0001 Emanuel lable Time: 01:00:00 PM Not Available [facility] 0 21:12:55 Antenata l screenin g Active 2019 Encounte r for antenata l screenin g for nuchal transluc ency;Rec orded Elsewher e: No Locat ion: Seamus esteves [facility] S ource: EHR Retreader sarah: N Practi ce ID: 0001 Emanuel lable Time: 01:30:00 PM Not Available [facility] 0 21:12:54 Nausea and vomiting 50461667 Active 2019 Nausea with vomiting , unspecif ied;Prac esther ID: 0001 Not Available [facility] 0 21:12:54 Gestatio n period, 16 weeks 50788723 Active 2019 16 weeks gestatio n of pregnanc y;Practi ce ID: 0001 Not Available [facility] 0 21:12:54 Pregnanc y, childbir th and puerperi um finding Active 2019 Encntr for suprvsn of normal first preg, second trimeste r;Practi ce ID: 0001 Not Available [facility] 0 21:12:54 Pregnanc y, childbir th and puerperi um finding Active 2019 Encntr for suprvsn of normal first pregnanc y, unsp trimeste r;Practi ce ID: 0001 Not Available [facility] 0 21:12:54 Pregnanc y 96313135 Completed 201905/21/2020 Travis Mcdowell MD [address], [place], [address], [facility] 0 12:59:29 Problem Notes None recorded. Procedures Surgical History Date Name Laterality Status Provider Name and Address Organization Details Recorded Time 0 section completed [facility] 05/01/2020 10:10:38 9 Date of Last Pap Smear completed [facility] 05/01/2020 10:07:49 Imaging Results None recorded. Procedure Notes None recorded. Medical Equipment None Reported. Allergies No known drug allergies Medications Name Sig Start Date Stop Date Status Note LastModified by Organization Details LastModified Time venlafaxi ne ER 37.5 mg capsule,e xtended release 24 hr take 1 capsule by oral route every day with food active Prescrib ed Elsewher e: Yes Loca tion: [facility] M odify By: sienna tirado DateTime : [...] Prescrib ed Elsewher e: No Locat ion: [facility] M odify By: [email or web address] trick En counter [...] Prescrib ed Elsewher e: No Locat ion: [facility] M odify By: [email or web address] trick En counter DateTime : 07/31/20 13 11:35:47 AM Not Available Not Available Not Available famotidin e 20 mg tablet 05/01 completed Not Available Not Available Not Available Depo-Prov era 150 mg/mL intramusc ular suspensio n inject 1 millilit er (150MG) by intramus cular route every 3 months 06/22 completed Prescrib ed Elsewher e: No Locat ion: [facility] odify By: roya vigiluntjudith DateTime : 02/19/20 14 11:05:52 AM Not Available Not Available Not Available Flagyl 500 mg tablet take 1 tablet (500MG) by oral route 2 times every day 07/24 completed Prescrib ed Elsewher e: No Locat ion: [facility] odify By: [email or web address] trick En counter [...] Prescrib ed Elsewher e: Yes Loca tion: [facility] odify By: sienna tirado DateTime : 09/25/20 19 01:00:00 PM Not Available Not Available Not Available mirtazapi ne 30 mg tablet TAKE 1 TABLET BY MOUTH EVERY DAY AT BEDTIME active Not Available Not Available No t Available Prozac 20 mg capsule take 1 capsule by oral route every day in the morning 06/22 completed Prescrib ed Elsewher e: Yes Loca tion: [facility] odify By: amfelix vigilunter DateTime : 08/30/20 [...] Prescrib ed Elsewher e: No Locat ion: [facility] odify By: [email or web address] trick En counter [...] Elsewher e: No Locat ion: [facility] odify By: [email or web address] trick En counter [...] Elsewher e: Yes Loca tion: [facility] odify By: sienna Moreno r DateTime [...] Elsewher e: Yes Loca tion: [facility] odify By: jisa Moreno r DateTime : 06/22/20 16 02:00:00 PM Not Available Not Available Not Available ondansetr on 4 mg disintegr ating tablet 08/10 completed Not Available Not Available Not Available Klonopin 1 mg tablet take 1 tablet by oral route 3 times every day 06/22 completed Prescrib ed Elsewher e: Yes Loca tion: [facility] odify By: roya aviles DateTime : 11/09/19 13 01:30:00 PM Not Available Not Available Not Available clotrimaz ole 1 % topical cream apply by topical route 2 times every day to the affected and surround ing areas of skin in the morning and evening 11/07 completed Prescrib ed Elsewher e: No Locat ion: [facility] odify By: [email or web address] trick En counter [...] Prescrib ed Elsewher e: No Locat ion: [facility] odify By: sienna tirado DateTime : 08/04/20 14 01:36:16 PM Not Available Not Available Not Available Metadate CD 10 mg capsule,e xtended release take 1 capsule by oral route every day in the morning before breakfas t 08/30 completed Prescrib ed Elsewher e: Yes Loca tion: [facility] odify By: [email or web address] trick En counter [...] Address Organization Details Last Updated DateTime 04/14/2020 25827.82874 g 134/89 mm[Hg] Amaya Valent[place] - [facility] 04/14/2020 09:45:13 Date Recorded Body weight Provider Name an d Address Organization Details Last Updated DateTime 05/01/2020 89852.09241 anson Mcdowell MD [address], [place], [address], [facility] 05/21/2020 12:59:26 Date Recorded Body height Body mass index (BMI) Systolic And Diastolic Provider Name and Address Organization Details Last Updated DateTime 05/01/2020 160.02 cm 27.1 kg/m2 142/107 mm[Hg] Steph Pena [facility] 05/01/2020 10:07:32 Date Recorded Body weight Provider Name an d Address Organization Details Last Updated DateTime 05/08/2020 78996.83293 anson Mcdowell MD [address], [place], [address], [facility] 05/21/2020 12:59:26 Date Recorded Body height Body mass index (BMI) Systolic And Diastolic Provider Name and Address Organization Details Last Updated DateTime 05/08/2020 160.02 cm 26.2 kg/m2 122/86 mm[Hg] Gisell [facility] 05/08/2020 15:35:52 Date Recorded Body weight Provider Name an d Address Organization Details Last Updated DateTime 05/21/2020 25670.49798 anson Mcdowell MD [address], [place], [address], [facility] 05/21/2020 12:59:26 Date Recorded Body height Body mass index (BMI) Systolic And Diastolic Provider Name and Address Organization Details Last Updated DateTime 05/21/2020 160.02 cm 25.2 kg/m2 117/85 mm[Hg] Gisell [facility] 05/21/2020 12:23:13 Date Recorded Body height Body mass index (BMI) Body weight Systolic And Diastolic Systolic And Diastolic Provider Name and Address Organization Details Last Updated DateTime 08/10/2020 160.02 cm 24.3 kg/m2 96200.15 g 142/84 mm[Hg] 126/82 mm[Hg] Gisell Bonilla [facility] 0 14:29:50 Social History Question Answer Notes LastModified by [employer] Details LastModified Time Tobacco Smoking Status Current Every Day Smoker Lora Wayne jacinda, [facility] 02/25/2020 15:08:33 What Was The Date Of Your Most Recent Tobacco Screening? 05/01/2020 [email or web address] Information not available 05/01/2020 How Much Tobacco Do You Smoke? 0.25 PPD [email or web address] Information not available 05/01/2020 Sex: Unknown Functional [...] Diagnosis IMO Codes Diagnosis Note [id number] [address],[place] [address] 02/25/2020 14:51:13 02/26/2020 10:44:09 Routine care [id number] Z34.93 Will check tsh and ft4 in addition to 28 week labs [id number] Yeni Clarke [facility] [place] [address],[place] [address] 03/10/2020 14:15:52 03/10/2020 15:47:18 Routine care [id number] Z34.93 Will check tsh and ft4 in addition to 28 week labs [id number] [facility] [address],[place] [address] 04/02/2020 16:50:09 04/22/2020 11:22:40 Routine care [id number] Z34.93 [id number] Edilma Haines MD [place] [address],[place] [address] 04/14/2020 09:38:37 04/14/2020 10:02:25 Normal [id number] Z34.93 [id number] Travis Mcdowell MD [place] [address],[place] [address] 05/01/2020 09:43:02 05/01/2020 11:07:50 -induced hypertension [id number] O13.9 This patient is a 24-year-ol d female who presents forpregnan cy-induced hypertensi on follow-up. She is got elevated blood pressure today. We agreed to start antihypert ensive. She willcheck her blood pressures at home as she has been doing. She has been [id number] t home. She has the same today. We will start 200 [place]. [id number] Travis Mcdowell MD [place] [address],[place] [address] 05/08/2020 15:30:33 05/08/2020 16:12:27 Postoperative pain [id number] G89.18 Patient is a 24-year-ol d female [...] in 2 weeks for her routine visit. [id number] Travis Mcdowell MD [place] [address],[place] [address] 05/21/2020 11:53:33 05/21/2020 13:03:57 care [id number] Z39.2 [id number] Travis Mcdowell MD [place] [address] [address] 08/10/2020 14:19:51 08/10/2020 15:15:29 Mixed anxiety and depressive disorder [id number] F41.8 this patient is a 25-year-ol d [...] Snell Member ID Guarantor Name 03/03/2025 1 [facility] - DOS PRIOR TO 2021 (MEDICAID REPLACEMENT - HMO) Diana Marie [id number] 03/15/2025 1 [facility] ON OR AFTER 04/29/21 (MEDICAID REPLACEMENT - HMO) Diana Marie [id number] Notes Date Note Type Note Provider Name and Address Organization Details Recorded Time 04/14/2020 text/html Generic HPI TemplateReported by Patient S Zaki monaco [facility] 04/14/2020 10:02:10 05/01/2020 text/html This patient [...] labetalol. Travis Mcdowell MD [address], [place], [address], [facility] 05/01/2020 10:57:52 05/08/2020 text/html [...] visit. Travis Mcdowell MD [address], [place], [address], [facility] 05/08/2020 16:09:12 05/21/2020 text/html VisitReported by Patient Travis Mcdowell MD [address], [place], [address], [facility] 05/21/2020 13:02:13 08/10/2020 text/html [...] marked agitation at times. Spent 15 minutes [id number]-[id number]. More than 50% was counseling. We are going to help her with locating a counselor. We may help her find a psychiatrist. Travis Mcdowell MD [address], [place], [address], [facility] 08/10/2020 14:52:25 OBGyn Episode Ob Episode Information Episode Created Date Number of Fetuses Patient Bloodtype Patient rh Status Prepregnancy Weight lbs Domestic Partner Domestic Partner Phone Father Name Pipe Layer Helper Status 02/25/20 20 1 A Positive 100 CLOSED Fetus Data First Name Last Name Admitted to NICU Weight (g) Sex Living Outcome Pediatric Complications Fetus ID Race Codes Race Delivery Type Lori 2381.35 8 F true Full Term breech 910 Primary Problems Problem Notes Problem Name Start Date End Date Resolution Snomed Code Not e Past medication [id number] [facility] - hx lamictal & xanax in and growth restriction -rpt u/s & OV 04/01/20 at 3:15pmSSM discontinued xanax started on lamotrigine, vistaril with effexor - U/S [id number]. See consult notes! Juan Miguel Calculation Initial [...] Gestation 0 [email or web address] 03/10/2020 07/12/20 20 0 Pre-raul Flowsheet Flowsheet Date 02/25/2020 Stiles Score Blood Edema Fundus Height Fundus Units Glucose Ketones Leukocytes Nitrite Labor Signs Protein Cervic Dilation Cervic Effacement Cervic Station 28 1+ Type Weight in lbs Pre/Post Dialysis Refused Weight 142.140493313209 BP Diastolic BP Location Tested BP Systolic [...] Weight in lbs Pre/Post Dialysis Refused Weight 145.3722263103 BP Diastolic BP Location Tested BP Systolic [...] Weight in lbs Pre/Post Dialysis Refused Weight 157.391352782198 BP Diastolic BP Location Tested BP Systolic [...] Weight in lbs Pre/Post Dialysis Refused Weight 111.772888586167 BP Diastolic BP Location Tested BP Systolic [...] Weight in lbs Pre/Post Dialysis Refused Weight 119.317134531234 BP Diastolic BP Location Tested BP Systolic BP Type 73 106 sitting Fetus Heart Rate Present A 154 Fetus Movement A No Comments OB [id number] pt states that sauceda ving nausea and vomiting, discharge and was treated for UTI in hospital Flowsheet Date 12/30/2019 Stiles Score Blood Edema Fundus Height Fundus Units Glucose Ketones Leukocytes Nitrite Labor Signs Protein Cervic Dilation Cervic Effacement Cervic Station 1+ 21 Type Weight in lbs Pre/Post Dialysis Refused Weight 127.419778376103 BP Diastolic BP Location Tested BP Systolic BP Type 75 111 sitting Fetus Heart Rate Present A 144 Fetus Movement Comments Flowsheet Date 01/24/2020 Stiles Score Blood Edema Fundus Height Fundus Units Glucose Ketones Leukocytes Nitrite Labor Signs Protein Cervic Dilation Cervic Effacement Cervic Station none 26 trace Type Weight in lbs Pre/Post Dialysis Refused Weight 135.36209588822 BP Diastolic BP Location Tested BP Systolic BP Type 74 123 sitting Fetus Heart Rate Present A 155 Fetus Movement A Yes Comments No complaints. Expecting bab y girl Margarita plans to breastfeed. Advised TdaP vaccine between 28-32 weeks Flowsheet Date 04/14/2020 Stiles Score Blood Edema Fundus Height Fundus Units Glucose Ketones Leukocytes Nitrite Labor Signs Protein Cervic Dilation Cervic Effacement Cervic Station trace 37 cm 0cm 30% -2 Type Weight in lbs Pre/Post Dialysis Refused Weight 167.761807344680 BP Diastolic BP Location Tested BP Systolic [...] Weight in lbs Pre/Post Dialysis Refused Weight 153.673065203925 BP Diastolic BP Location Tested BP Systolic BP Type 107 142 Fetus Heart Rate Present Fetus Movement Comments Flowsheet Date 05/08/2020 Stiles Score Blood Edema Fundus Height Fundus Units Glucose Ketones Leukocytes Nitrite Labor Signs Protein Cervic Dilation Cervic Effacement Cervic Station Type Weight in lbs Pre/Post Dialysis Refused Weight 148.168832403659 BP Diastolic BP Location Tested BP Systolic BP Type 86 122 Fetus Heart Rate Present Fetus Movement Comments Flowsheet Date 05/21/2020 Stiles Score Blood Edema Fundus Height Fundus Units Glucose Ketones Leukocytes Nitrite Labor Signs Protein Cervic Dilation Cervic Effacement Cervic Station Type Weight in lbs Pre/Post Dialysis Refused Weight 142.278044255023 BP Diastolic BP Location Tested BP Systolic [...] At Estimated Date of Delivery false Thalassemia (Cameroonian, Divehi, Mediterranean, Or Background): MCV < 80 false Neural Tube Defect (Meningom yelocele, Spina Bifida, Or Anencephaly) false Congenital Heart Defect false Down Syndrome false Brennan-Sachs (eg, Bahai, Cajun , Burkinan-Avinger) false Avelina Disease false Sickle Cell Disease Or Trait () false Hemophilia Or Other Blood Disorders false Muscular Dystrophy false Cystic Fibrosis false Crookston's Chorea false Intellectual Disability/Autism false If Yes, [...] Domestic Partner Domestic Partner Phone Father Name Pipe Layer Helper Status 05/01/20 20 1 DELETED Juan Miguel [...]
--- OUTSIDE RECORDS SUMMARY | 2025-10-15 18:45 | XMS_ITS | Clinical Summary ---
Author Organization [facility] Address [address] [place] [address] Care Team Providers Care Print Shop Assistant Name Role Phone Unavailable Primary Care Provider Unavailabl e Source Comments [facility],non-owned Affiliates and Associated Physician Practices is amultiple site organization consisting of ambulatory clinics and hospital sitesin [place], [place], [place] and [place]. This disclosure is being madepursuant to the Care Everywhere program and may not contain all information available regarding this patient. Last updated 18.[facility] Allergies No known active allergies Medications * [...] blood pressure 121/80. Benign physical exam today. [facility] Plan: 1. Macrobid sent to pharmacy given [...] far! Assessment & Plan (12/25/2019 3:40 PM TECHNICAL SERVICE SPECIALIST): Has cut down on smoking. Offered nicotine [...] supplementation. Assessment & Plan (12/25/2019 3:41 PM TECHNICAL SERVICE SPECIALIST): Maternal Medicine recommendations: 1. Prescribed riboflavin for [...] continues to have occasional craving for alprazolam [facility] recommendations: 1. Praised her cessation of alprazolam use; reminded of risk of withdrawal if she were to resume taking alprazolam. Diana verbalized understanding. 2. Continue hydroxyzine as needed for anxiety. Assessment & Plan (12/25/2019 3:40 PM TECHNICAL SERVICE SPECIALIST): Has discontinued Xanax. Using venlafaxine. Anxiety decreased. Remains at risk for mood deterioration. Maternal Medicine recommendations: 1. Would benefit from establishing care with a mental health provider Assessment & Plan (11/06/2019 6:13 PM TECHNICAL SERVICE SPECIALIST): Currently on BuSpar and Effexor. Does not [...] for excessive sedation and adequate weight gain. [email or web address] Maternal Medicine recommendations : 1. Consultation with a clinical pharmacist--referral initiated 2. Reestablish care with psychiatrist and mental health counselor 3. IF Effexor is continued into the 3rd trimester, I recommend communication of maternal use of this medication to form block maker any increased per vision of the within [...] weeks due to venlafaxine use. 6. Notify form block maker of maternal medication use. 7. Recommend additional [...] weeks due to venlafaxine use. 5. Notify form block maker of maternal medication use. 6. Recommend additional [...] weeks due to venlafaxine use 6. Notify form block maker of maternal medication use 7. Recommend additional supervision of within the 1st 48 hr of life to monitor for adverse medication effects 8. supported and encouraged Assessment & Plan (12/25/2019 3:49 PM TECHNICAL SERVICE SPECIALIST): Restarted Lamictal--currently on titration schedule. Also using [...] weeks due to venlafaxine use 7. notify form block maker of maternal medication use 8. recommend additional supervision of within the 1st 48 hr of life to monitor for adverse medication effects 9. supported Assessment & Plan (11/06/2019 6:13 PM TECHNICAL SERVICE SPECIALIST): Currently on BuSpar and Effexor. 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
== END 2025-10-15 18:04 | disposition home or self-care (01) ==
DX: J02.0 Streptococcal pharyngitis (principal); Z20.822 Contact with and (suspected) exposure to COVID-19; F17.210 Nicotine dependence, cigarettes, uncomplicated; F41.9 Anxiety disorder, unspecified; F31.9 Bipolar disorder, unspecified
CPT/HCPCS: 87426; 87804; 87880; 99213; G0463